=== PATIENT | male | born 1930 | race Caucasian/White ===

== ENCOUNTER 2016-10-02 14:43 | Inpatient (IN) | payer MEDICARE, BC ==
[~2016-10-02] VITALS: Ht 167.6 cm; Wt 73.0 kg
--- NOTE | 2016-10-02 14:50 | NUR ---
DR BRYANT AT THE BEDSIDE FOR EVAL AND EXAM.
[2016-10-02] MEDS ORDERED: METO-302 PO (15:09)
[2016-10-02] MEDS ORDERED: DIGO250T PO (15:09)
[2016-10-02] MEDS ORDERED: NAPR220C15 PO (15:09)
[2016-10-02] MEDS ORDERED: MIRT15TA7 PO (15:09)
[2016-10-02] MEDS ORDERED: MIRT15TA PO (15:09)
[2016-10-02] MEDS ORDERED: QUET25TA PO (15:09)
[2016-10-02] MEDS ORDERED: DUTA0.5C PO (15:09)
[2016-10-02] MEDS ORDERED: FINA5TAB11 PO (15:09)
[2016-10-02] MEDS ORDERED: DOCU100C22 PO (15:09)
[2016-10-02] MEDS ORDERED: NIAC500T23 PO (15:09)
[2016-10-02] MEDS ORDERED: FURO20TA4 PO (15:09)
[2016-10-02] MEDS ORDERED: ASPI-612 PO (15:09)
[2016-10-02] MEDS ORDERED: TRAM50TA2 PO (15:09)
[2016-10-02] MEDS ORDERED: LEVO75TA7 PO (15:09)
[2016-10-02] MEDS ORDERED: EZET10TA PO (15:09)
[2016-10-02] MEDS ORDERED: MULT-1119 PO (15:09)
[2016-10-02 15:14] LABS: BASOPHILS # (AUTO) 0.1 K/uL (0.0-0.2); BASOPHILS % (AUTO) 0.6 % (0.0-2.0); EOSINOPHILS # (AUTO) 0.4 K/uL (0.0-0.7); HEMATOCRIT 49.1 % (40.0-50.0); HEMOGLOBIN 15.9 g/dL (14.0-18.0); LYMPHOCYTES # (AUTO) 1.1 K/uL (0.8-4.8); LYMPHOCYTES % (AUTO) 12.4 % (20.5-51.5); MEAN CORPUSCULAR HEMOGLOBIN 28.7 uug (27.0-31.0); MEAN CORPUSCULAR HGB CONC 32 g/dL (32.0-37.0); MEAN CORPUSCULAR VOLUME 88.7 fL (82.0-92.0); MONOCYTES # (AUTO) 0.4 K/uL (0.1-1.30); NEUTROPHILS # (AUTO) 6.9 K/uL (1.8-8.9); PLATELET COUNT (AUTO) 300 K/uL (150-450); RED BLOOD CELL COUNT(AUTO) 5.53 MIL/uL (4.70-6.10); RED CELL DISTRIBUTION WIDTH 13.1 % (11.5-14.5); WHITE BLOOD COUNT (AUTO) 8.9 K/uL (4.0-11.2)
[2016-10-02] MEDS ORDERED: ALBU0.63 IH (15:14)
[2016-10-02] MEDS ORDERED: TEST200V3 IM (15:14)
[2016-10-02] MEDS ORDERED: ANAS1TAB8 PO (15:14)
[2016-10-02] MEDS ORDERED: IPRA12.9 IH (15:14)
[2016-10-02 15:31] LABS: BILIRUBIN,DIRECT 0.3 mg/dL (0.0-0.2); BILIRUBIN,TOTAL 1.1 mg/dL (0.2-1.0); CALCIUM 9.6 mg/dL (8.5-10.1); POTASSIUM 4.7 mmol/L (3.5-5.1)
[2016-10-02 15:34] LABS: CREATININE 2.6 mg/dL (0.6-1.3)
[2016-10-02] MEDS ORDERED: MORPHINE SULFATE 2 MG/1 ML DISP.SYRIN ONE (15:59)
[2016-10-02] MEDS ORDERED: MORPHINE SULFATE 2 MG/1 ML DISP.SYRIN IV ONE (16:00)
[2016-10-02] MEDS ORDERED: ONDANSETRON 4 MG/2 ML VIAL IV ONE (16:00)
[2016-10-02] MEDS ORDERED: ONDANSETRON 4 MG/2 ML VIAL ONE (16:06)
--- NOTE | 2016-10-02 16:10 | NUR ---
BELONGING LIST COMPLETED. NOT CANDIDATE FOR MRSA SWAB.
[2016-10-02 17:00] VITALS: BP 100/60
--- NOTE | 2016-10-02 17:15 | NUR ---
RECEIVED PATIENT 85 YEARS OLD MALE FROM ED WITH DX OF FREQUENT FALLS AND HIP INJURY.PLACED INTO BED FIXED AND MADE COMFORTABLE PATIENT IS ALERT X2 UNABLE TO PROVIDE HISTORY SO I CALLED HIS FARA AND SPOKE WITH HER AND SHE ASSISTED WITH ADMISSION QUESTIONARES.DR RICARDO AWARE OF NEW PATIENT AWAITING FOR ORDERS.
[2016-10-02] MEDS ORDERED: IPRATROPIUM BROMIDE 0.5 MG/2.5 ML NEBU NEB PRN (18:45)
[2016-10-02] MEDS ORDERED: ANASTROZOLE 1 MG TABLET PO SCH (18:45)
[2016-10-02] MEDS ORDERED: MORPHINE SULFATE 2 MG/1 ML DISP.SYRIN IV PRN (18:45)
[2016-10-02] MEDS ORDERED: ALBUTEROL SULFATE 2.5 MG/ 0.5 ML NEBU NEB PRN (18:45)
--- NOTE | 2016-10-02 18:55 | NUR ---
DR RICARDO SEEN PATIENT WITH NEW ORDERS.
[2016-10-02 19:00] VITALS: BP 122/69
--- NOTE | 2016-10-02 20:00 | NUR ---
RECEIVED PATIENT AWAKE IN BED. ALERT TO SELF. CONFUSED BUT PLEASANT WHEN APPROACHED. DENIES PAIN OR DISCOMFORT. NO RESP. DISTRESS NOTED. H/L INTACT AND PATENT. VSS. BED ALARM ON FOR SAFETY. CALL LIGHT IN REACH. WILL CONTINUE TO MONITOR. ALL NEEDS ATTENDED.
[2016-10-02] MEDS: IV 1/2NS 1000 ML 1,000 ML IV PRN (20:25)
[2016-10-02] MEDS: ACETAMINOPHEN 325 MG TABLET PO PRN (20:45)
[2016-10-02] MEDS: MIRTAZAPINE 15 MG TABLET PO SCH (20:45)
[2016-10-02] MEDS: Z GUARD REMEDY PASTE 57 GM TUBE TOP SCH (20:45)
[2016-10-02] MEDS: EZETIMIBE 10 MG TABLET PO SCH (20:45)
[2016-10-02] MEDS ORDERED: MIRTAZAPINE 15 MG TABLET PO SCH (21:00)
[2016-10-03 05:00] VITALS: BP 143/62
--- NOTE | 2016-10-03 05:43 | NUR ---
PATIENT AWAKE IN BED. DID NOT SLEEP THROUGHOUT THE NIGHT. DENIES PAIN AT THIS TIME. PATIENT HAS PERIODS OF CONFUSION. IVF INFUSING WELL TO NEW IV HEPLOCK NOTED TO LEFT FA #20 GAUGE. SITTER AT BEDSIDE FOR SAFETY. VSS. NO RESP. DISTRESS NOTED. BED ALARM ON. CALL LIGHT IN REACH. ALL NEEDS ATTENDED. WILL CONTINUE TO MONITOR.
[2016-10-03] MEDS: PANTOPRAZOLE SODIUM 40 MG TABLET.DR PO SCH (06:10)
[2016-10-03] MEDS: LEVOTHYROXINE SODIUM 75 MCG TABLET PO SCH (06:10)
[2016-10-03 06:48] LABS: BASOPHILS # (AUTO) 0.1 K/uL (0.0-0.2); BASOPHILS % (AUTO) 0.8 % (0.0-2.0); EOSINOPHILS # (AUTO) 0.5 K/uL (0.0-0.7); EOSINOPHILS % (AUTO) 6.4 % (0.0-7.0); HEMATOCRIT 46.7 % (40.0-50.0); LYMPHOCYTES # (AUTO) 1.4 K/uL (0.8-4.8); LYMPHOCYTES % (AUTO) 17.7 % (20.5-51.5); MEAN CORPUSCULAR HEMOGLOBIN 28.7 uug (27.0-31.0); MEAN CORPUSCULAR HGB CONC 32 g/dL (32.0-37.0); MEAN CORPUSCULAR VOLUME 89.4 fL (82.0-92.0); MONOCYTES # (AUTO) 0.7 K/uL (0.1-1.30); MONOCYTES % (AUTO) 8.5 % (0.0-11.0); NEUTROPHILS % (AUTO) 66.6 % (38.5-71.5); PLATELET COUNT (AUTO) 269 K/uL (150-450); RED BLOOD CELL COUNT(AUTO) 5.23 MIL/uL (4.70-6.10); WHITE BLOOD COUNT (AUTO) 7.7 K/uL (4.0-11.2)
[2016-10-03 07:08] LABS: THYROID STIMULATING HORMONE 3.687 mIU/mL (0.358-3.740)
--- NOTE | 2016-10-03 07:30 | NUR ---
PT RECEIVED IN BED AWAKW.PT IS CONFUSED ,SITTER AT BED SIDE ,V/S ARE STABLE.BREAKFAST SERVED.
[2016-10-03] MEDS: DOCUSATE SODIUM 100 MG CAPSULE PO SCH ×2 (08:11→16:09)
[2016-10-03] MEDS: DUTASTERIDE 0.5 MG CAPSULE PO SCH (08:11)
[2016-10-03] MEDS: ASPIRIN 325 MG TABLET PO SCH (08:11)
[2016-10-03] MEDS: MULTIVITAMINS,THERAPEUTIC TABLET PO SCH (08:11)
[2016-10-03] MEDS: Z GUARD REMEDY PASTE 57 GM TUBE TOP SCH ×2 (08:12→20:19)
[2016-10-03 08:19] LABS: ALBUMIN 3.5 g/dL (3.4-5.0); BILIRUBIN,TOTAL 1.1 mg/dL (0.2-1.0); CALCIUM 9.2 mg/dL (8.5-10.1); PHOSPHOROUS 3.4 mg/dL (2.5-4.9); POTASSIUM 4.1 mmol/L (3.5-5.1); TOTAL PROTEIN, SERUM 6.3 g/dL (6.4-8.2)
[2016-10-03 08:25] LABS: CREATININE 2.5 mg/dL (0.6-1.3)
[2016-10-03] MEDS ORDERED: Medication Not On Formulary EA (Multivitamin (Multi Vitamin Daily) 1 EACH) PO SCH (09:00)
[2016-10-03] MEDS ORDERED: DIGOXIN 250 MCG TABLET PO SCH (09:00)
[2016-10-03 09:22] LABS: DIGOXIN 3.64 ng/mL (0.90-2.00)
--- NOTE | 2016-10-03 09:22 | NUR ---
PT DIGOXIN LEVEL IS 3.64 MD MADE AWARE.
--- NOTE | 2016-10-03 10:40 | NUR ---
CLINICAL PHARMACY NOTE(REVIEW [place] [facility] 85-year-old male, patient is brought in by and caregiver. PCP is Dr. Mock. Patient has been having frequent falls the past week and today fell onto the right hip. Patient is having right hip pain. Unknown head injury. No chest pain or palpitations. Possible syncope also. Medical history Past Medical Hx: Yes HX Neurological Disorder: Yes (PARKINSONS, ALZHEIMERS) HX Cardiac Disorder: Yes (A FIB, MVR, 3 VESSEL BYPASS, PACEMAKER, CAD) HX Genitourinary Disorder: Yes (PROSTATE PROBLEMS) HX Musculoskeletal Disorder: Yes (ARTHRITIS, FREQUENT FALLS) Other Medical HX: HYPOTHYROIDISM All medications review as of today digoxin, mirtazapine and pantoprazole on high risk list. Digoxin not recommended as first line therapy for AF in the elderly increase risk of toxicity. If use no more than 0.125mg recommended. Mirtazapine m.ay exacerbate or cause syndrome of inappropriate antidiuretic hormone secretion or hyponatremia. Pantoprazole avoid use greater than 8 weeks unless high risk patient risk of Clostridium difficile infection and bone loss and fractures. Patient was on digoxin 0.25mg daily Scr 2.5 estimate CrCl 20 dig level came back 3.64. Digoxin held for today. Dig level ordered for tomorrow. If in range doctor order 0.125mg daily. Pantoprazole ordered in hospital as part of GI prophylaxis. Although do not see depression listed in the history, mirtazapine maybe effective in some of the psychiatric symptoms of Parkinson disease. Therefore at this time have no recommendation except for monitoring digoxin level and signs of digoxin toxicity.
[2016-10-03] MEDS: ACETAMINOPHEN 325 MG TABLET PO PRN (10:43)
[2016-10-03] MEDS: IV 1/2NS 1000 ML 1,000 ML IV PRN (12:10)
[2016-10-03 12:11] VITALS: BP 144/74
[2016-10-03 15:02] LABS: *BILIRUBIN,URIN NEGATIVE (NEGATIVE); *BLOOD, URINE NEGATIVE (NEGATIVE); *CLARITY,URINE CLEAR (CLEAR); *COLOR,URINE YELLOW (YELLOW); *KETONES,URINE NEGATIVE (NEGATIVE); *PROTEIN,URINE NEGATIVE (NEGATIVE); *UROBILINOGEN,URINE 0.2 E.U./dl (NORMAL); LEUKOCYTE ESTERASE ,URINE NEGATIVE (NEGATIVE); NITRITE, URINE NEGATIVE (NEGATIVE); UGLUCOSE NEGATIVE (NEGATIVE)
[2016-10-03 15:11] LABS: MUCUS,URINE FEW /LPF (0-FEW); RBC,URINE 0-3 /HPF (0-3); SQUAMOUS EPITHELIAL CELL,UR FEW /HPF (NONE SEEN); WBC,URINE 0-3 /HPF (0-3)
[2016-10-03 15:50] VITALS: BP 134/62
[2016-10-03] MEDS: LORAZEPAM 2 MG/1 ML VIAL IV PRN (15:55)
--- NOTE | 2016-10-03 16:00 | NUR ---
PT IS VERY COMBATIVE AND JUMPING OUT OF BED PER MD ORDERS ATIVAN 0.5 MG I/V GIVEN
--- NOTE | 2016-10-03 19:30 | NUR ---
RESTING IN BED, SLEEPING AT THIS TIME. CALM AND COMFORTABLE. NO ACUTE DISTRESS NOTED. 1:1 SITTER AT BEDSIDE FOR SAFETY. NEEDS ATTENDED. WILL CONTINUE TO MONITOR
[2016-10-03 20:00] VITALS: BP 107/61
[2016-10-03] MEDS: MIRTAZAPINE 15 MG TABLET PO SCH (20:19)
[2016-10-03] MEDS: EZETIMIBE 10 MG TABLET PO SCH (20:19)
--- NOTE | 2016-10-04 02:50 | NUR ---
NOTED TO BE RESTLESS. WANTS TO GET OUT OF BED, UNABLE TO REDIRECT. SAFETY MAINTAINED. WILL ADMINISTER ATIVAN ORDERED. WILL MONITOR
[2016-10-04] MEDS: LORAZEPAM 2 MG/1 ML VIAL IV PRN (02:51)
[2016-10-04] MEDS: IV 1/2NS 1000 ML 1,000 ML IV PRN ×2 (02:52→16:51)
[2016-10-04 04:00] VITALS: BP 111/64
--- NOTE | 2016-10-04 06:08 | NUR ---
SLEPT AFTER ATIVAN ADMINISTRATION. NO ACUTE DISTRESS NOTED. CONTINUES WITH 1:1 SITTER AT BEDSIDE. TURNED AND REPOSITIONED. KEPT CLEAN AND DRY. KEPT COMFORTABLE
[2016-10-04] MEDS: LEVOTHYROXINE SODIUM 75 MCG TABLET PO SCH (06:16)
[2016-10-04] MEDS: PANTOPRAZOLE SODIUM 40 MG TABLET.DR PO SCH (06:16)
[2016-10-04] MEDS ORDERED: SENNOSIDES 1 TABLET PO PRN (07:15)
--- NOTE | 2016-10-04 07:30 | NUR ---
pt received in bed sleeping.sitter at bed side.v/s are stable.assessment done.breakfast served.
[2016-10-04] MEDS: ASPIRIN 325 MG TABLET PO SCH (08:06)
[2016-10-04] MEDS: MULTIVITAMINS,THERAPEUTIC TABLET PO SCH (08:06)
[2016-10-04] MEDS: DOCUSATE SODIUM 100 MG CAPSULE PO SCH ×2 (08:06→16:03)
[2016-10-04] MEDS: DUTASTERIDE 0.5 MG CAPSULE PO SCH (08:07)
[2016-10-04] MEDS: Z GUARD REMEDY PASTE 57 GM TUBE TOP SCH ×2 (08:13→21:55)
[2016-10-04] MEDS ORDERED: DIGOXIN 125 MCG TABLET PO SCH (09:00)
[2016-10-04] MEDS ORDERED: DIGOXIN 250 MCG TABLET PO SCH (09:00)
[2016-10-04 09:20] LABS: BASOPHILS # (AUTO) 0.1 K/uL (0.0-0.2); BASOPHILS % (AUTO) 1.4 % (0.0-2.0); EOSINOPHILS # (AUTO) 0.5 K/uL (0.0-0.7); EOSINOPHILS % (AUTO) 6.1 % (0.0-7.0); HEMATOCRIT 46.3 % (40.0-50.0); HEMOGLOBIN 14.7 g/dL (14.0-18.0); LYMPHOCYTES # (AUTO) 1.3 K/uL (0.8-4.8); LYMPHOCYTES % (AUTO) 17.4 % (20.5-51.5); MEAN CORPUSCULAR HEMOGLOBIN 28.2 uug (27.0-31.0); MEAN CORPUSCULAR HGB CONC 32 g/dL (32.0-37.0); MEAN CORPUSCULAR VOLUME 88.9 fL (82.0-92.0); MONOCYTES # (AUTO) 0.7 K/uL (0.1-1.30); MONOCYTES % (AUTO) 9.8 % (0.0-11.0); NEUTROPHILS % (AUTO) 65.3 % (38.5-71.5); PLATELET COUNT (AUTO) 257 K/uL (150-450); RED BLOOD CELL COUNT(AUTO) 5.21 MIL/uL (4.70-6.10); RED CELL DISTRIBUTION WIDTH 12.8 % (11.5-14.5); WHITE BLOOD COUNT (AUTO) 7.6 K/uL (4.0-11.2)
[2016-10-04 09:49] LABS: ALBUMIN 3.4 g/dL (3.4-5.0); BILIRUBIN,TOTAL 1.1 mg/dL (0.2-1.0); MAGNESIUM 2.2 mg/dL (1.8-2.4); PHOSPHOROUS 2.8 mg/dL (2.5-4.9); POTASSIUM 3.9 mmol/L (3.5-5.1); TOTAL PROTEIN, SERUM 6.2 g/dL (6.4-8.2)
[2016-10-04 09:52] LABS: CREATININE 2.1 mg/dL (0.6-1.3)
[2016-10-04 09:53] LABS: DIGOXIN 3.19 ng/mL (0.90-2.00)
--- NOTE | 2016-10-04 09:57 | NUR ---
pt digoxin level is 3.19 ,dr encinas notified
[2016-10-04 12:00] VITALS: BP 145/68
[2016-10-04 15:24] VITALS: BP 138/54
--- NOTE | 2016-10-04 17:30 | NUR ---
PT WAS RETAINING URINE PER MD ORDERS FOLLY CATHETER INSERTED.
--- NOTE | 2016-10-04 19:35 | NUR ---
Patient resting in bed comfortably, no s/s of distress. Sitter at bedside. Call light within reach. Will continue to monitor.
[2016-10-04 20:00] VITALS: BP 146/71
[2016-10-04] MEDS: EZETIMIBE 10 MG TABLET PO SCH (20:14)
[2016-10-04] MEDS: MIRTAZAPINE 15 MG TABLET PO SCH (20:14)
--- NOTE | 2016-10-04 20:18 | NUR ---
SHEILA, PATIENT'S GAVE PERMISSION TO GIVE INFORMATION TO THEIR SON MR. ALEAH RODAS
[2016-10-05] MEDS: LORAZEPAM 2 MG/1 ML VIAL IV PRN ×3 (01:11→19:43)
[2016-10-05 05:58] VITALS: BP 139/75
--- NOTE | 2016-10-05 06:08 | NUR ---
Patient awake with no s/s of distress at this time. With episodes of agitation during the shift. Due meds given. Call light within reach. Sitter at bedside. Frequent checks done. Safety measures observed. Needs attended. Kept comfortable. Endorsed accordingly.
[2016-10-05] MEDS: LEVOTHYROXINE SODIUM 75 MCG TABLET PO SCH (06:27)
[2016-10-05] MEDS: PANTOPRAZOLE SODIUM 40 MG TABLET.DR PO SCH (06:28)
[2016-10-05 07:07] LABS: BASOPHILS # (AUTO) 0.1 K/uL (0.0-0.2); BASOPHILS % (AUTO) 1.4 % (0.0-2.0); EOSINOPHILS # (AUTO) 0.4 K/uL (0.0-0.7); EOSINOPHILS % (AUTO) 4.8 % (0.0-7.0); HEMATOCRIT 47.1 % (40.0-50.0); HEMOGLOBIN 15.3 g/dL (14.0-18.0); LYMPHOCYTES # (AUTO) 1.3 K/uL (0.8-4.8); LYMPHOCYTES % (AUTO) 14.2 % (20.5-51.5); MEAN CORPUSCULAR HEMOGLOBIN 29.4 uug (27.0-31.0); MEAN CORPUSCULAR HGB CONC 33 g/dL (32.0-37.0); MEAN CORPUSCULAR VOLUME 90.5 fL (82.0-92.0); MONOCYTES # (AUTO) 0.6 K/uL (0.1-1.30); MONOCYTES % (AUTO) 6.4 % (0.0-11.0); NEUTROPHILS # (AUTO) 6.8 K/uL (1.8-8.9); NEUTROPHILS % (AUTO) 73.2 % (38.5-71.5); PLATELET COUNT (AUTO) 264 K/uL (150-450); RED BLOOD CELL COUNT(AUTO) 5.21 MIL/uL (4.70-6.10); RED CELL DISTRIBUTION WIDTH 12.9 % (11.5-14.5); WHITE BLOOD COUNT (AUTO) 9.1 K/uL (4.0-11.2)
[2016-10-05 07:21] LABS: ALBUMIN 3.4 g/dL (3.4-5.0); CREATININE 2.2 mg/dL (0.6-1.3); PHOSPHOROUS 2.5 mg/dL (2.5-4.9); POTASSIUM 3.8 mmol/L (3.5-5.1); TOTAL PROTEIN, SERUM 6.5 g/dL (6.4-8.2)
--- NOTE | 2016-10-05 07:30 | NUR ---
PT RECEIVED IN BED SLEEPING.SITTER AT BED SIDE.V/S ARE STABLE.
[2016-10-05] MEDS: IV 1/2NS 1000 ML 1,000 ML IV PRN ×2 (07:44→22:14)
[2016-10-05] MEDS: ASPIRIN 325 MG TABLET PO SCH (08:01)
[2016-10-05] MEDS: DOCUSATE SODIUM 100 MG CAPSULE PO SCH ×2 (08:01→16:19)
[2016-10-05] MEDS: MULTIVITAMINS,THERAPEUTIC TABLET PO SCH (08:01)
[2016-10-05] MEDS: DUTASTERIDE 0.5 MG CAPSULE PO SCH (08:02)
[2016-10-05] MEDS: Z GUARD REMEDY PASTE 57 GM TUBE TOP SCH ×2 (08:14→20:03)
[2016-10-05 11:38] VITALS: BP 130/55
--- NOTE | 2016-10-05 14:00 | NUR ---
PT WALK WITH THE PHYSICAL THERAPY IN THE HALLWAY ,TOLERATED WELL
[2016-10-05] MEDS: ACETAMINOPHEN 325 MG TABLET PO PRN ×2 (14:27→20:02)
--- NOTE | 2016-10-05 14:27 | NUR ---
PT IS JUMPING OUT OF BED.HITTING THE SITTER ,ATIVAN 0.5 MG I/V GIVEN PER MD ORDERS.
[2016-10-05 16:38] VITALS: BP 139/86
[2016-10-05 19:00] VITALS: BP 125/67
--- NOTE | 2016-10-05 20:00 | NUR ---
PATIENT AWAKE IN BED. VERY AGITATED AND TRYING TO PULL OUT IV SITE. SITTER AT BEDSIDE FOR SAFETY. VSS. PATIENT GIVEN ATIVAN 0.5MG IV PER RN. IVF INFUSING WELL TO LEFT FA #20 GAUGE. NO S/S OF PAIN OR DISCOMFORT. NO RESP. DISTRESS NOTED. BED ALARM ON. CALL LIGHT IN REACH. ALL NEEDS ATTENDED. WILL CONTINUE TO MONITOR AND ASSESS.
[2016-10-05] MEDS: EZETIMIBE 10 MG TABLET PO SCH (20:02)
[2016-10-05] MEDS: MIRTAZAPINE 15 MG TABLET PO SCH (20:02)
[2016-10-06 05:38] VITALS: BP 131/71
[2016-10-06] MEDS: PANTOPRAZOLE SODIUM 40 MG TABLET.DR PO SCH (06:05)
[2016-10-06] MEDS: LEVOTHYROXINE SODIUM 75 MCG TABLET PO SCH (06:05)
--- NOTE | 2016-10-06 06:36 | NUR ---
PATIENT ASLEEP IN BED. EASILY AROUSABLE. SLEPT WELL THROUGHOUT THE NIGHT. SITTER AT BEDSIDE. VSS. IVF INFUSING WELL. BED ALARM ON. CALL LIGHT IN REACH. ALL NEEDS ATTENDED. WILL CONTINUE TO MONITOR.
[2016-10-06 06:51] LABS: BASOPHILS # (AUTO) 0.1 K/uL (0.0-0.2); BASOPHILS % (AUTO) 0.9 % (0.0-2.0); EOSINOPHILS # (AUTO) 0.6 K/uL (0.0-0.7); EOSINOPHILS % (AUTO) 6.8 % (0.0-7.0); HEMATOCRIT 46.4 % (40.0-50.0); HEMOGLOBIN 14.8 g/dL (14.0-18.0); LYMPHOCYTES # (AUTO) 1.5 K/uL (0.8-4.8); LYMPHOCYTES % (AUTO) 16.9 % (20.5-51.5); MEAN CORPUSCULAR HEMOGLOBIN 28.7 uug (27.0-31.0); MEAN CORPUSCULAR HGB CONC 32 g/dL (32.0-37.0); MEAN CORPUSCULAR VOLUME 89.7 fL (82.0-92.0); MONOCYTES # (AUTO) 0.8 K/uL (0.1-1.30); MONOCYTES % (AUTO) 9.2 % (0.0-11.0); NEUTROPHILS # (AUTO) 5.8 K/uL (1.8-8.9); NEUTROPHILS % (AUTO) 66.2 % (38.5-71.5); PLATELET COUNT (AUTO) 246 K/uL (150-450); RED BLOOD CELL COUNT(AUTO) 5.17 MIL/uL (4.70-6.10); RED CELL DISTRIBUTION WIDTH 12.9 % (11.5-14.5); WHITE BLOOD COUNT (AUTO) 8.8 K/uL (4.0-11.2)
[2016-10-06 07:17] LABS: ALBUMIN 3.2 g/dL (3.4-5.0); BILIRUBIN,TOTAL 0.9 mg/dL (0.2-1.0); CALCIUM 8.9 mg/dL (8.5-10.1); DIGOXIN 2.36 ng/mL (0.90-2.00); MAGNESIUM 2.1 mg/dL (1.8-2.4); PHOSPHOROUS 3.2 mg/dL (2.5-4.9); POTASSIUM 4.1 mmol/L (3.5-5.1); TOTAL PROTEIN, SERUM 6.1 g/dL (6.4-8.2)
[2016-10-06 07:32] LABS: CREATININE 1.9 mg/dL (0.6-1.3)
--- NOTE | 2016-10-06 08:00 | NUR ---
RESTING QUIET CONTINUE IVF INFUSION WELL ,NO RESPIRATORY DISTRESS OR PAIN CLOSED OBSERVATION SITTER 1:1 AT BEDSIDE ,BED ALARM ON AND CALL SAMANO IN REACH AND INSTRUCTION TO CALL WHEN NEEDED
[2016-10-06] MEDS: MULTIVITAMINS,THERAPEUTIC TABLET PO SCH (08:02)
[2016-10-06] MEDS: DUTASTERIDE 0.5 MG CAPSULE PO SCH (08:03)
[2016-10-06] MEDS: ASPIRIN 325 MG TABLET PO SCH (08:03)
[2016-10-06] MEDS: DOCUSATE SODIUM 100 MG CAPSULE PO SCH ×2 (08:03→16:20)
[2016-10-06] MEDS: Z GUARD REMEDY PASTE 57 GM TUBE TOP SCH ×2 (08:03→21:04)
[2016-10-06 11:11] VITALS: BP 119/67
--- NOTE | 2016-10-06 12:30 | NUR ---
DR RICARDO SEE PATIENT AND LAB RESULT AND DISCUSS WITH FAMILY TODAY EAT LUNCH WELL NO PAIN MORE AWAKE ALERT
[2016-10-06 15:39] VITALS: BP 112/67
[2016-10-06] MEDS ORDERED: QUETIAPINE FUMARATE 25 MG TABLET PO SCH (17:00)
--- NOTE | 2016-10-06 17:15 | NUR ---
PATIENT WAS AGITATION TRY TO OOB MED PRN ATIVAN GIVEN ORDERED AND CLOSED OBSERVATION
[2016-10-06] MEDS: LORAZEPAM 2 MG/1 ML VIAL IV PRN (17:19)
--- NOTE | 2016-10-06 18:00 | NUR ---
SLEEP QUIET AT THIS TIME SAFETY MEASURE PROVIDED BED ALARM ON SITTER AT BEDSIDE
[2016-10-06 19:00] VITALS: BP 100/63
[2016-10-06] MEDS: EZETIMIBE 10 MG TABLET PO SCH (20:32)
[2016-10-06] MEDS: MIRTAZAPINE 15 MG TABLET PO SCH (20:32)
[2016-10-06] MEDS ORDERED: MIRT15TA7 PO (21:18)
[2016-10-06] MEDS ORDERED: IPRA0.2S6 NEB (21:18)
[2016-10-06] MEDS ORDERED: Acetaminophen PO (21:18)
[2016-10-06] MEDS ORDERED: QUET25TA PO (21:18)
[2016-10-06] MEDS ORDERED: ALBU2.5V13 NEB (21:18)
[2016-10-06] MEDS ORDERED: PANT40TA2 PO (21:18)
[2016-10-06] MEDS ORDERED: MENT71OI TOP (21:18)
[2016-10-06] MEDS ORDERED: Sennosides PO (21:18)
[2016-10-06] MEDS ORDERED: DIGO125T5 PO (21:27)
--- NOTE | 2016-10-06 22:30 | NUR ---
NURSE NOTE CALLED FOR REPORT AND GIVE REPORT TO LAZARUS IN U, PICTURES WERE TAKEN BY RAPID RESPOND NURSE, PT TRANSFERED TO THE MHU IN STABLE CONDITION
== END 2016-10-06 23:27 | DRG 682 ==
LOC: ER 14:50 → MED 16:42
PROVIDERS: ADMIT Internal Medicine; ATTEND Internal Medicine
DX: N17.0 Acute kidney failure with tubular necrosis (principal); I50.31 Acute diastolic (congestive) heart failure; G93.40 Encephalopathy, unspecified; I13.0 Hypertensive heart and chronic kidney disease with heart failure and stage 1 through stage 4 chronic kidney disease, or unspecified chronic kidney disease; D68.59 Other primary thrombophilia; F02.81 Dementia in other diseases classified elsewhere, unspecified severity, with behavioral disturbance; T46.0X5A Adverse effect of cardiac-stimulant glycosides and drugs of similar action, initial encounter; S70.01XA Contusion of right hip, initial encounter; S42.001A Fracture of unspecified part of right clavicle, initial encounter for closed fracture; E03.9 Hypothyroidism, unspecified; I25.10 Atherosclerotic heart disease of native coronary artery without angina pectoris; G30.9 Alzheimer's disease, unspecified; Z95.2 Presence of prosthetic heart valve; W18.30XA Fall on same level, unspecified, initial encounter; Y92.009 Unspecified place in unspecified non-institutional (private) residence as the place of occurrence of the external cause; G20 Parkinson's disease; N18.9 Chronic kidney disease, unspecified; F29 Unspecified psychosis not due to a substance or known physiological condition; M19.90 Unspecified osteoarthritis, unspecified site; M81.0 Age-related osteoporosis without current pathological fracture; N40.0 Benign prostatic hyperplasia without lower urinary tract symptoms; Z95.1 Presence of aortocoronary bypass graft; Z87.891 Personal history of nicotine dependence; Z86.73 Personal history of transient ischemic attack (TIA), and cerebral infarction without residual deficits; I48.2 Chronic atrial fibrillation; E29.1 Testicular hypofunction; F32.9 Major depressive disorder, single episode, unspecified; N28.1 Cyst of kidney, acquired; R29.6 Repeated falls; Z79.899 Other long term (current) drug therapy
CPT/HCPCS: 36415; 70030-TC; 70450; 71010; 72192; 73030; 76770; 83550; 83735; 84100; 84153; 84443; 85025; 85730; 92506; 93005; 93307; 97001; 97112; 97116; A4663; J2060; J2270; J2405; J3490

== ENCOUNTER 2016-10-06 23:43 | Inpatient (IN) | payer MEDICARE, BC ==
[~2016-10-06] VITALS: Ht 167.6 cm; Wt 70.3 kg
[~2016-10-06 23:43] MED LIST: ALBU0.63 IH; ALBU2.5V13 NEB; ANAS1TAB8 PO; ASPI-612 PO; Acetaminophen PO; DIGO125T5 PO; DIGO250T PO; DOCU100C22 PO; DUTA0.5C PO; EZET10TA PO; FURO20TA4 PO; IPRA0.2S6 NEB; IPRA12.9 IH; LEVO75TA7 PO; MENT71OI TOP; METO-302 PO; MIRT15TA PO; MIRT15TA7 PO; MULT-1119 PO; NAPR220C15 PO; NIAC500T23 PO; PANT40TA2 PO; QUET25TA PO; Sennosides PO; TEST200V3 IM; TRAM50TA2 PO
[2016-10-07] VITALS: BP 141/83
[2016-10-07] MEDS ORDERED: ACETAMINOPHEN 325 MG TABLET PO PRN
[2016-10-07] MEDS ORDERED: MAG HYDROX/AL HYDROX/SIMETH 30 ML LIQUID UDC PO PRN
--- NOTE | 2016-10-07 03:52 | NUR ---
Admitted patient from [facility], arrived via bed with RN and SCHOOL PLANT CONSULTANT. Patient is confused and disoriented when spoken to. F/C in place, saline lock in place. Patient denies any chest pain or shortness of breath. Pacemaker noted on left side of chest. Placed patient in bed, attempted to climb out of bed numerous times. Unable to redirect, patient states his car is parked outside and wants to go home. placed bed near nurses station for close observation. Attempting to climb out of bed, assisted patient to bathroom, patient with unsteady gait, assistance of 2 people needed when ambulating d/t weakness. Placed in abdirahman chair near nurses station for safety.
[2016-10-07 07:30] VITALS: BP 118/67
[2016-10-07] MEDS ORDERED: ANASTROZOLE 1 MG TABLET PO SCH (09:00)
[2016-10-07] MEDS ORDERED: TRAMADOL HCL 50 MG TABLET PO PRN (09:00)
[2016-10-07] MEDS ORDERED: IPRATROPIUM BROMIDE 0.5 MG/2.5 ML NEBU NEB PRN (09:00)
[2016-10-07] MEDS ORDERED: Medication Not On Formulary EA (Multivitamin (Multi Vitamin Daily) 1 EACH) PO SCH (09:00)
[2016-10-07] MEDS ORDERED: ALBUTEROL SULFATE 2.5 MG/ 0.5 ML NEBU NEB PRN (09:00)
[2016-10-07] MEDS ORDERED: [UNRECOGNIZED DRUG - OTHER] PO PRN (09:00)
[2016-10-07] MEDS: DOCUSATE SODIUM 100 MG CAPSULE PO SCH ×2 (09:00→17:00)
[2016-10-07] MEDS: MULTIVITAMINS,THERAPEUTIC TABLET PO SCH (09:45)
[2016-10-07] MEDS ORDERED: SENNOSIDES 1 TABLET PO PRN (09:45)
[2016-10-07] MEDS: LORAZEPAM 0.5 MG TABLET PO PRN (10:09)
[2016-10-07] MEDS: DIGOXIN 125 MCG TABLET PO SCH (10:10)
[2016-10-07] MEDS: DUTASTERIDE 0.5 MG CAPSULE PO SCH (10:10)
[2016-10-07] MEDS: Z GUARD REMEDY PASTE 57 GM TUBE TOP SCH ×2 (10:10→20:50)
[2016-10-07] MEDS: LEVOTHYROXINE SODIUM 75 MCG TABLET PO SCH (10:12)
[2016-10-07] MEDS: ASPIRIN 325 MG TABLET PO SCH (10:14)
[2016-10-07] MEDS: QUETIAPINE FUMARATE 25 MG TABLET PO SCH ×2 (13:45→17:00)
[2016-10-07 15:38] VITALS: BP 127/87
[2016-10-07 19:45] VITALS: BP 149/95
[2016-10-07] MEDS: TEMAZEPAM 7.5 MG CAPSULE PO PRN (23:26)
--- NOTE | 2016-10-07 23:27 | NUR ---
GPS: PATIENT UNABLE TO SLEEP. ENCOURAGED TO TAKE RESTORIL 7.5 MG PO. PATIENT SPIT OUT MEDS FROM HIS MOUTH.
[2016-10-08] MEDS: PANTOPRAZOLE SODIUM 40 MG TABLET.DR PO SCH (06:15)
[2016-10-08] MEDS: LEVOTHYROXINE SODIUM 75 MCG TABLET PO SCH (06:15)
--- NOTE | 2016-10-08 06:37 | NUR ---
GPS: REMAIN UNCOOPERATIVE WITH STAFF AND CARE. ASSISTED WITH ADL'S. REFUSED AM PO MEDS. F/C PATENT. 500 CC YELLOW URINE OUT PUT THIS MORNING. CONTINUE ON 1:1 SITTER @ BEDSIDE FOR SAFETY.
--- NOTE | 2016-10-08 06:53 | NUR ---
GPS: SLEPT 3:45 HRS THROUGH THE NIGHT. REFUSED AM PO MEDS. CONTINUE PLAN OF CARE.
[2016-10-08 07:30] VITALS: BP 127/62
[2016-10-08] MEDS: DOCUSATE SODIUM 100 MG CAPSULE PO SCH ×2 (09:35→17:36)
[2016-10-08] MEDS: ASPIRIN 325 MG TABLET PO SCH (09:35)
[2016-10-08] MEDS: MULTIVITAMINS,THERAPEUTIC TABLET PO SCH (09:36)
[2016-10-08] MEDS: DUTASTERIDE 0.5 MG CAPSULE PO SCH (09:36)
[2016-10-08] MEDS: QUETIAPINE FUMARATE 25 MG TABLET PO SCH (09:36)
[2016-10-08] MEDS: DIGOXIN 125 MCG TABLET PO SCH (09:36)
[2016-10-08] MEDS: Z GUARD REMEDY PASTE 57 GM TUBE TOP SCH ×2 (09:39→20:40)
[2016-10-08] MEDS: CYANOCOBALAMIN 1000 MCG/ML VIAL IM SCH (13:32)
--- NOTE | 2016-10-08 15:53 | NUR ---
Initial discharge instructions: The patient currently resides at home ([address] [place] [address]) with his (Delores,[phone]).SW spoke with the patients' and DPOA regarding discharge. The reports that she would like the patient to return home. She reports that she has obtained additional caregiver support that will be more appropriate for the patients care.The also reported that she would provide transportation back home upon discharge.EDSON will speak with MD and family regarding most appropriate discharge plan.SW will form a safe and proper discharge plan.
[2016-10-08 16:02] VITALS: BP 112/59
--- NOTE | 2016-10-08 16:35 | NUR ---
I have reviewed the psychosocial done by Mason Martínez. Addendum: 10/08/16 at 1637 by TOOTIE SANDHU Amended: Links added.
[2016-10-08] MEDS ORDERED: QUETIAPINE FUMARATE 25 MG TABLET PO SCH (17:00)
[2016-10-08] MEDS: MIRTAZAPINE 15 MG TABLET PO SCH ×2 (20:39→21:00)
[2016-10-08 20:51] VITALS: BP 104/53
--- NOTE | 2016-10-08 22:00 | NUR ---
received to care, lying in bed talking to self, 1;1 sitter at patients side. jon catheter remains patent, draining dark yellow urine, in adequate amounts. refused all medications and food offered, but he did take some apple juice and water. resistive to care at times. attempted to climb out of bed, and try to strike staff when redirected, so he was placed in the abdirahman chair, for safety. as of 2199, he remains in the abdirahman chair. appears to be falling asleep.no distress noted. will continue to monitor closely..
[2016-10-08] MEDS: TEMAZEPAM 7.5 MG CAPSULE PO PRN (23:40)
[2016-10-09] MEDS: LEVOTHYROXINE SODIUM 75 MCG TABLET PO SCH (06:53)
[2016-10-09] MEDS: PANTOPRAZOLE SODIUM 40 MG TABLET.DR PO SCH (06:53)
--- NOTE | 2016-10-09 07:00 | NUR ---
slept 1.5 hours total. compliant with early AM meds. appears calm. sitter at side.
[2016-10-09 07:08] LABS: BASOPHILS # (AUTO) 0.2 K/uL (0.0-0.2); BASOPHILS % (AUTO) 1.4 % (0.0-2.0); EOSINOPHILS # (AUTO) 0.7 K/uL (0.0-0.7); EOSINOPHILS % (AUTO) 5.5 % (0.0-7.0); HEMATOCRIT 48.7 % (40.0-50.0); HEMOGLOBIN 16.5 g/dL (14.0-18.0); LYMPHOCYTES # (AUTO) 1.6 K/uL (0.8-4.8); LYMPHOCYTES % (AUTO) 13.2 % (20.5-51.5); MEAN CORPUSCULAR HEMOGLOBIN 30.2 uug (27.0-31.0); MEAN CORPUSCULAR HGB CONC 34 g/dL (32.0-37.0); MEAN CORPUSCULAR VOLUME 89.3 fL (82.0-92.0); MONOCYTES # (AUTO) 0.7 K/uL (0.1-1.30); MONOCYTES % (AUTO) 5.8 % (0.0-11.0); NEUTROPHILS % (AUTO) 74.1 % (38.5-71.5); PLATELET COUNT (AUTO) 309 K/uL (150-450); RED BLOOD CELL COUNT(AUTO) 5.45 MIL/uL (4.70-6.10); RED CELL DISTRIBUTION WIDTH 12.8 % (11.5-14.5); WHITE BLOOD COUNT (AUTO) 12.2 K/uL (4.0-11.2)
[2016-10-09 07:27] LABS: ALBUMIN 3.8 g/dL (3.4-5.0); BILIRUBIN,TOTAL 0.9 mg/dL (0.2-1.0); CALCIUM 9.8 mg/dL (8.5-10.1); CREATININE 2.2 mg/dL (0.6-1.3); DIGOXIN 1.38 ng/mL (0.90-2.00); MAGNESIUM 2.3 mg/dL (1.8-2.4); PHOSPHOROUS 3.2 mg/dL (2.5-4.9); POTASSIUM 3.8 mmol/L (3.5-5.1); TOTAL PROTEIN, SERUM 7.2 g/dL (6.4-8.2)
[2016-10-09 07:30] VITALS: BP 112/70
[2016-10-09 08:06] LABS: HOMOCYSTEINE, PLASMA 18.2 umol/L (0.0-15.0)
--- NOTE | 2016-10-09 08:32 | NUR ---
Reviewed psychosocial done by Mason Martínez. Addendum: 10/09/16 at 0898 by SAMANTHA SANDHU Amended: Links added.
[2016-10-09] MEDS: Z GUARD REMEDY PASTE 57 GM TUBE TOP SCH ×2 (09:00→21:34)
[2016-10-09] MEDS: CYANOCOBALAMIN 1000 MCG/ML VIAL IM SCH (09:00)
[2016-10-09] MEDS: MULTIVITAMINS,THERAPEUTIC TABLET PO SCH (09:00)
[2016-10-09] MEDS: DUTASTERIDE 0.5 MG CAPSULE PO SCH (09:00)
[2016-10-09] MEDS: ASPIRIN 325 MG TABLET PO SCH (09:00)
[2016-10-09] MEDS: DIGOXIN 125 MCG TABLET PO SCH (09:00)
[2016-10-09] MEDS: DOCUSATE SODIUM 100 MG CAPSULE PO SCH ×2 (09:00→16:52)
[2016-10-09 09:22] LABS: BAND % (MANUAL) 2 % (0-10); BASOPHILS % (MANUAL) 0 % (0-2); EOSINOPHILS % (MANUAL) 2 % (0-8); LYMPHOCYTES % (MANUAL) 18 % (20-40); MONOCYTES % (MANUAL) 6 % (2-10); NEUTROPHILS % (MANUAL) 71 % (42-75); PLATELET ESTIMATE ADEQUATE
[2016-10-09] MEDS: QUETIAPINE FUMARATE 25 MG TABLET PO PRN ×2 (10:11→11:02)
--- NOTE | 2016-10-09 11:12 | NUR ---
GPS: Nursing Notes: Striking Out: Patient is confused, verbal abusive, resistant with nursing care, refusing his medications PO, threatening staff, restless, believes that he is leaving today, "I am going to ange you..", "You are a liar... Bitch..", loud and angry affect, trying to bite staff on the arm, resistant with nursing care by kicking staff when assisting him, disoriented, confused, impaired judgment, unable to be redirected, continue with 1:1 sitter for safety, continue with treatment plan.
[2016-10-09] MEDS ORDERED: OLANZAPINE 10 MG VIAL IM STA (11:27)
[2016-10-09] MEDS ORDERED: OLANZAPINE 10 MG VIAL IM ONE (11:30)
[2016-10-09] MEDS ORDERED: OLANZAPINE 10 MG VIAL IM PRN (11:30)
--- NOTE | 2016-10-09 11:42 | NUR ---
GPS: Nursing Notes: Chemical Restraint: Continue with severe agitation, striking out at staff by kicking, punching, trying to bite staff on the arm when near him, resistant with nursing care, restless, unable to be redirected, Dr. Kirkland order: Zyprexa 5mg IM STAT for severe agitated behavior, continue with 1:1 sitter for safety, continue with treatment plan.
--- NOTE | 2016-10-09 12:12 | NUR ---
GPS: Nursing Notes: Reassessment of Chemical Restraint: Patient continue to be confused, disoriented, impaired judgment, stopped striking out, became calm and allowing nursing care, continue with 1:1 sitter for safety, medication IM was effective, continue with treatment plan.
[2016-10-09 17:01] VITALS: BP 116/77
[2016-10-09 20:00] VITALS: BP 100/68
[2016-10-09] MEDS: MIRTAZAPINE 15 MG TABLET PO SCH (21:35)
[2016-10-10] MEDS: LORAZEPAM 0.5 MG TABLET PO PRN ×3 (00:16→17:19)
[2016-10-10] MEDS: TEMAZEPAM 7.5 MG CAPSULE PO PRN ×2 (01:39→22:11)
[2016-10-10] MEDS: LEVOTHYROXINE SODIUM 75 MCG TABLET PO SCH (06:24)
[2016-10-10] MEDS: PANTOPRAZOLE SODIUM 40 MG TABLET.DR PO SCH (06:24)
[2016-10-10 07:30] VITALS: BP 114/72
[2016-10-10 07:45] LABS: *BILIRUBIN,URIN NEGATIVE (NEGATIVE); *BLOOD, URINE 3+ (NEGATIVE); *CLARITY,URINE SLIGHTLY CLOUDY (CLEAR); *COLOR,URINE YELLOW (YELLOW); *KETONES,URINE NEGATIVE (NEGATIVE); *PROTEIN,URINE 2+ (NEGATIVE); *UROBILINOGEN,URINE 0.2 E.U./dl (NORMAL); NITRITE, URINE NEGATIVE (NEGATIVE); PH,URINE 5.5 (5.0-8.0); UGLUCOSE NEGATIVE (NEGATIVE)
[2016-10-10 08:25] LABS: LEUKOCYTE ESTERASE ,URINE TRACE (NEGATIVE)
[2016-10-10 08:27] LABS: BACTERIA,URINE FEW /HPF (NONE SEEN); RBC,URINE TNTC /HPF (0-3); SQUAMOUS EPITHELIAL CELL,UR FEW /HPF (NONE SEEN)
[2016-10-10 08:28] LABS: MUCUS,URINE FEW /LPF (0-FEW); URIC ACID CRYSTALS,URINE MODERATE /HPF (NONE SEEN)
[2016-10-10] MEDS: DUTASTERIDE 0.5 MG CAPSULE PO SCH (09:00)
[2016-10-10] MEDS: DOCUSATE SODIUM 100 MG CAPSULE PO SCH ×2 (09:53→17:19)
[2016-10-10] MEDS: MULTIVITAMINS,THERAPEUTIC TABLET PO SCH (09:53)
[2016-10-10] MEDS: CYANOCOBALAMIN 1000 MCG/ML VIAL IM SCH (09:53)
[2016-10-10] MEDS: DIGOXIN 125 MCG TABLET PO SCH (09:54)
[2016-10-10] MEDS: OLANZAPINE 2.5 MG TABLET PO SCH ×2 (09:55→17:19)
[2016-10-10] MEDS: ASPIRIN 325 MG TABLET PO SCH (09:56)
[2016-10-10] MEDS: Z GUARD REMEDY PASTE 57 GM TUBE TOP SCH ×2 (09:57→21:06)
--- NOTE | 2016-10-10 14:12 | NUR ---
GPS/RN- Dr Kirkland notified of Riese hearing scheduled for tomorrow at 2pm.
--- NOTE | 2016-10-10 14:15 | NUR ---
weekly meeting: HX: PARKINSON DISEASE , ALZHEIMER,AFIB,CAD,PACEMAKER,BPH,HYPOTHYROIDISM TOLERATING CURRENT DIET,EATING 0-100% OF MEALS (CARDIAC) ANTHROPOMETRY:HT IS 66",CURRENT WT IS 155LB,BMI 25-OVERWEIGHT , 3LB WT GAIN NOTICED IN ONE DAY LIKELY ERROR IN MEASUREMENT OR OTHER FACTORS. NO N/V/D NO ALLERGIES NOTICED MEDICATION:VITAMIN B12,PROTONIX,MVI,SYNTHROID,COLACE DNI PROTONIX AND SYNTHROID TO BE ADMINISTERED 1HR BEFORE OR 1HR AFTER FOOD LABS: 10/09 WBC-12.2(H), BUN/CR-28/2.2(H/H),GLUCOSE 123(H) BM PRESENT SKIN HAS REDNESS ON SACRUM NUTRITION DIAGNOSIS: ALTERED NUTRITION LAB VALUES RELATED TO CURRENT CONDITION,ACUTE KIDNEY FAILURE EVIDENCED BY ABOVE LAS INTERVENTION: IF BUN/CR CONTINUE TO ELEVATE, REC PROTEIN RESTRICTION DIET WILL F/U WITH PO INTAKE IF PO INTAKE DECLINE < 60%,CONSIDER BOOST ONCE MONITOR;PO INTAKE,WT,NEW LABS Addendum: 10/10/16 at [address] Amended: Links added.
[2016-10-10 16:00] VITALS: BP 124/75
[2016-10-10 20:04] VITALS: BP 112/63
[2016-10-10] MEDS ORDERED: SULFAMETH/TRIMETH 800/160 MG TABLET PO SCH (21:00)
[2016-10-10] MEDS: SULFAMETH/TRIMETH 800/160 MG TABLET PO SCH (21:05)
[2016-10-10] MEDS: MIRTAZAPINE 15 MG TABLET PO SCH (21:06)
[2016-10-10] MEDS: TAMSULOSIN HCL 0.4 MG CAP.SR.24H PO SCH (21:06)
--- NOTE | 2016-10-10 22:00 | NUR ---
received to care, lying in bed, 1;1 sitter at patients side. jon catheter remains patent, draining dark yellow urine, in adequate amounts. compliant with medications and staff direction. as of 2200, he remains awake, and slightly restless. no distress noted. will continue to monitor closely.
--- NOTE | 2016-10-10 22:11 | NUR ---
PRN restoril, given for insomnia
--- NOTE | 2016-10-10 23:00 | NUR ---
appears to be asleep. no distress noted.
--- NOTE | 2016-10-11 06:00 | NUR ---
SLEPT 6 HOURS
[2016-10-11] MEDS: LEVOTHYROXINE SODIUM 75 MCG TABLET PO SCH (06:33)
[2016-10-11] MEDS: PANTOPRAZOLE SODIUM 40 MG TABLET.DR PO SCH (07:00)
[2016-10-11 07:30] VITALS: BP 116/63
[2016-10-11] MEDS: ASPIRIN 325 MG TABLET PO SCH (09:34)
[2016-10-11] MEDS: DOCUSATE SODIUM 100 MG CAPSULE PO SCH ×2 (09:34→17:38)
[2016-10-11] MEDS: SULFAMETH/TRIMETH 800/160 MG TABLET PO SCH ×2 (09:35→20:22)
[2016-10-11] MEDS: DIGOXIN 125 MCG TABLET PO SCH (09:36)
[2016-10-11] MEDS: MULTIVITAMINS,THERAPEUTIC TABLET PO SCH (09:36)
[2016-10-11] MEDS: CYANOCOBALAMIN 1000 MCG/ML VIAL IM SCH (09:37)
[2016-10-11] MEDS: OLANZAPINE 2.5 MG TABLET PO SCH ×2 (09:37→17:38)
[2016-10-11] MEDS: DUTASTERIDE 0.5 MG CAPSULE PO SCH (09:55)
[2016-10-11] MEDS: Z GUARD REMEDY PASTE 57 GM TUBE TOP SCH ×2 (09:56→20:23)
--- NOTE | 2016-10-11 13:00 | NUR ---
PTS SHEILA ASKED TO SPEAK WITH DR CALDERON REGARDING CONSULT. PAGED THROUGH ENVIRONMENTAL SUSTAINABILITY MANAGER SERVICE TO RELAY ROLAND NUMBER ([phone])
[2016-10-11] MEDS: LORAZEPAM 0.5 MG TABLET PO PRN (17:40)
[2016-10-11 20:00] VITALS: BP 104/62
[2016-10-11] MEDS: MIRTAZAPINE 15 MG TABLET PO SCH (20:22)
[2016-10-11] MEDS: TAMSULOSIN HCL 0.4 MG CAP.SR.24H PO SCH (20:22)
--- NOTE | 2016-10-11 22:00 | NUR ---
received to care, lying in bed, appearing anxious, and restless, 1;1 sitter at side, for safety, and prevention of pulling on jon catheter tubing. f/c remains patent, draining brown colored urine. PO fluids encouraged, but he is very resistive. compliant with medications and staff direction. as of 2199, he is up in the abdirahman chair, due to attempting to climb out of bed. appears slightly restless. will continue to monitor closely.
--- NOTE | 2016-10-11 22:11 | NUR ---
PRN restoril given for insomnia
--- NOTE | 2016-10-11 22:45 | NUR ---
appears calmer now. assisted to bed, with sitter at side.
--- NOTE | 2016-10-11 23:15 | NUR ---
appears to be asleep. no distress noted.
--- NOTE | 2016-10-12 01:39 | NUR ---
pt is now awake, and restless, attempting to pull on catheter tubing, and climb out of bed. becomes combative, when redirected. PRN ativan was offered, but he refused. assisted up in the abdirahman chair, for safety. sitter remains at side.
[2016-10-12] MEDS: LORAZEPAM 0.5 MG TABLET PO PRN ×3 (02:39→22:48)
--- NOTE | 2016-10-12 02:39 | NUR ---
PRN ativan was given at this time. remains up in abdirahman chair. will continue to monitor closely.
--- NOTE | 2016-10-12 03:20 | NUR ---
assisted back to bed.
--- NOTE | 2016-10-12 06:00 | NUR ---
slept 1.75 hours. assisted with AM care, and shower. compliant with AM medications. currently up in abdirahman chair. sitter remains at side. output of jon catheter was 400 ml of dark yellow urine. no distress noted. will continue to monitor closely.
[2016-10-12] MEDS: LEVOTHYROXINE SODIUM 75 MCG TABLET PO SCH (06:04)
[2016-10-12] MEDS: PANTOPRAZOLE SODIUM 40 MG TABLET.DR PO SCH (06:04)
[2016-10-12 07:05] LABS: BASOPHILS # (AUTO) 0.1 K/uL (0.0-0.2); BASOPHILS % (AUTO) 0.7 % (0.0-2.0); EOSINOPHILS # (AUTO) 0.5 K/uL (0.0-0.7); EOSINOPHILS % (AUTO) 6.2 % (0.0-7.0); HEMATOCRIT 48.9 % (40.0-50.0); HEMOGLOBIN 16.2 g/dL (14.0-18.0); LYMPHOCYTES # (AUTO) 1.3 K/uL (0.8-4.8); LYMPHOCYTES % (AUTO) 15.2 % (20.5-51.5); MEAN CORPUSCULAR HGB CONC 33 g/dL (32.0-37.0); MEAN CORPUSCULAR VOLUME 90.5 fL (82.0-92.0); MONOCYTES # (AUTO) 0.5 K/uL (0.1-1.30); MONOCYTES % (AUTO) 5.7 % (0.0-11.0); NEUTROPHILS # (AUTO) 6.3 K/uL (1.8-8.9); NEUTROPHILS % (AUTO) 72.2 % (38.5-71.5); PLATELET COUNT (AUTO) 286 K/uL (150-450); RED CELL DISTRIBUTION WIDTH 12.7 % (11.5-14.5); WHITE BLOOD COUNT (AUTO) 8.7 K/uL (4.0-11.2)
[2016-10-12 07:30] VITALS: BP 110/60
[2016-10-12 07:59] LABS: DIGOXIN 0.91 ng/mL (0.90-2.00); MAGNESIUM 2.3 mg/dL (1.8-2.4); PHOSPHOROUS 3.7 mg/dL (2.5-4.9)
[2016-10-12] MEDS: SULFAMETH/TRIMETH 800/160 MG TABLET PO SCH ×3 (08:52→20:02)
[2016-10-12] MEDS: DOCUSATE SODIUM 100 MG CAPSULE PO SCH ×4 (08:52→18:11)
[2016-10-12] MEDS: MULTIVITAMINS,THERAPEUTIC TABLET PO SCH ×2 (08:52→09:00)
[2016-10-12] MEDS: DIGOXIN 125 MCG TABLET PO SCH ×2 (08:52→09:00)
[2016-10-12] MEDS: ASPIRIN 325 MG TABLET PO SCH ×2 (08:52→09:00)
[2016-10-12] MEDS: OLANZAPINE 2.5 MG TABLET PO SCH ×3 (08:53→18:11)
[2016-10-12] MEDS: DUTASTERIDE 0.5 MG CAPSULE PO SCH (09:00)
[2016-10-12] MEDS: CYANOCOBALAMIN 1000 MCG/ML VIAL IM SCH (09:00)
[2016-10-12] MEDS: Z GUARD REMEDY PASTE 57 GM TUBE TOP SCH ×2 (09:00→20:03)
[2016-10-12] MEDS: OLANZAPINE 10 MG VIAL IM PRN (09:06)
--- NOTE | 2016-10-12 09:44 | NUR ---
GPS/RN- Patient oriented to self this am, continues confused and disorganized, visual hallucinations noted. patient grabbing something in the air. patient refused am medications, unable to redirect. instructed as to current MD Carver orders, patient verbalizing "I don't give a damn what she ordered." attempted to offer hydration, refused unable to redirect IM given per MD Finney orders. continue to monitor and redirect patient.
[2016-10-12] MEDS ORDERED: HALOPERIDOL LACTATE 5 MG/1 ML VIAL IM PRN (12:00)
--- NOTE | 2016-10-12 12:04 | NUR ---
GPS/RN- Clarification of orders, confirmed that Dr Kirkland. Patient will be on Zyprexa BID PO orders with IM Zyprexa orders if patient refuses PO; Haldol PO at hs and IM Haldol if patient refuses Haldol PO
[2016-10-12 15:20] VITALS: BP 112/59
[2016-10-12] MEDS: MAGNESIUM HYDROXIDE 30 ML LIQUID UDC PO PRN ×2 (18:11→18:28)
[2016-10-12] MEDS: MIRTAZAPINE 15 MG TABLET PO SCH (20:02)
[2016-10-12] MEDS: TAMSULOSIN HCL 0.4 MG CAP.SR.24H PO SCH (20:02)
[2016-10-12] MEDS: HALOPERIDOL 1 MG TABLET PO SCH (20:03)
[2016-10-12 20:11] VITALS: BP 107/70
[2016-10-12 22:00] VITALS: BP 133/83
--- NOTE | 2016-10-12 22:00 | NUR ---
received to care, up in abdirahman chair, intermittently talking to himself, appearing pleasant, but slightly restless, upon approach. 1;1 sitter remains at side, for safety. jon catheter remains patent, draining dark yellow urine in adequate amounts, PO fluids encouraged. compliant with medications and staff direction. will continue to monitor closely.
--- NOTE | 2016-10-12 22:48 | NUR ---
continues to be restless. PRN ativan was given, at this time.
[2016-10-13] MEDS: PANTOPRAZOLE SODIUM 40 MG TABLET.DR PO SCH (06:37)
[2016-10-13] MEDS: LEVOTHYROXINE SODIUM 75 MCG TABLET PO SCH (06:37)
[2016-10-13 07:30] VITALS: BP 109/59
[2016-10-13] MEDS: MULTIVITAMINS,THERAPEUTIC TABLET PO SCH (09:00)
[2016-10-13] MEDS: DUTASTERIDE 0.5 MG CAPSULE PO SCH (09:00)
[2016-10-13] MEDS: OLANZAPINE 2.5 MG TABLET PO SCH ×2 (09:00→17:07)
[2016-10-13] MEDS: ASPIRIN 325 MG TABLET PO SCH (09:00)
[2016-10-13] MEDS: SULFAMETH/TRIMETH 800/160 MG TABLET PO SCH ×2 (09:00→20:31)
[2016-10-13] MEDS: CYANOCOBALAMIN 1000 MCG/ML VIAL IM SCH (09:00)
[2016-10-13] MEDS: DOCUSATE SODIUM 100 MG CAPSULE PO SCH ×2 (09:00→17:06)
[2016-10-13] MEDS: DIGOXIN 125 MCG TABLET PO SCH (09:00)
[2016-10-13] MEDS: Z GUARD REMEDY PASTE 57 GM TUBE TOP SCH ×2 (10:18→20:37)
[2016-10-13 16:00] VITALS: BP 113/59
[2016-10-13 19:59] VITALS: BP 106/58
[2016-10-13] MEDS: HALOPERIDOL 1 MG TABLET PO SCH (20:31)
[2016-10-13] MEDS: TAMSULOSIN HCL 0.4 MG CAP.SR.24H PO SCH (20:32)
[2016-10-13] MEDS: MIRTAZAPINE 15 MG TABLET PO SCH (20:32)
[2016-10-14] MEDS: TEMAZEPAM 7.5 MG CAPSULE PO PRN ×2 (00:34→22:20)
[2016-10-14] MEDS: LEVOTHYROXINE SODIUM 75 MCG TABLET PO SCH (06:19)
[2016-10-14] MEDS: PANTOPRAZOLE SODIUM 40 MG TABLET.DR PO SCH (06:19)
[2016-10-14 07:30] VITALS: BP 106/63
[2016-10-14] MEDS: ASPIRIN 325 MG TABLET PO SCH (08:27)
[2016-10-14] MEDS: DIGOXIN 125 MCG TABLET PO SCH (08:28)
[2016-10-14] MEDS: MULTIVITAMINS,THERAPEUTIC TABLET PO SCH (08:28)
[2016-10-14] MEDS: SULFAMETH/TRIMETH 800/160 MG TABLET PO SCH ×3 (08:28→20:09)
[2016-10-14] MEDS: DUTASTERIDE 0.5 MG CAPSULE PO SCH (08:28)
[2016-10-14] MEDS: DOCUSATE SODIUM 100 MG CAPSULE PO SCH ×2 (08:28→16:37)
[2016-10-14] MEDS: OLANZAPINE 2.5 MG TABLET PO SCH ×2 (08:29→16:37)
[2016-10-14] MEDS: Z GUARD REMEDY PASTE 57 GM TUBE TOP SCH ×2 (08:35→20:10)
[2016-10-14] MEDS: OLANZAPINE 10 MG VIAL IM PRN (08:35)
[2016-10-14] MEDS: CYANOCOBALAMIN 1000 MCG/ML VIAL IM SCH (08:36)
--- NOTE | 2016-10-14 14:17 | NUR ---
GPS: Nursing Notes: Thought Disorder: Patient is awake and responding to his name, confused, disoriented, impaired judgment, poor anger management, banging on the table, resistant with nursing care, refusing his AM medications, refusing to eat breakfast, angry affect, redirected and reoriented during shift, refusing to be shave, assisted with ADL's, continue with 1:1 sitter for safety, unable to formulate a plan for self care, episodes of trying to pull off his F/C, continue with treatment plan.
[2016-10-14 16:00] VITALS: BP 122/54
[2016-10-14 20:03] VITALS: BP 116/69
[2016-10-14] MEDS: MIRTAZAPINE 15 MG TABLET PO SCH (20:09)
[2016-10-14] MEDS: HALOPERIDOL 1 MG TABLET PO SCH (20:09)
[2016-10-14] MEDS: TAMSULOSIN HCL 0.4 MG CAP.SR.24H PO SCH (20:09)
[2016-10-15] MEDS: LEVOTHYROXINE SODIUM 75 MCG TABLET PO SCH (06:37)
[2016-10-15] MEDS: PANTOPRAZOLE SODIUM 40 MG TABLET.DR PO SCH (06:37)
[2016-10-15 07:53] VITALS: BP 99/50
[2016-10-15 08:10] LABS: BASOPHILS # (AUTO) 0.1 K/uL (0.0-0.2); BASOPHILS % (AUTO) 0.6 % (0.0-2.0); EOSINOPHILS # (AUTO) 0.5 K/uL (0.0-0.7); EOSINOPHILS % (AUTO) 5.8 % (0.0-7.0); HEMATOCRIT 46.6 % (40.0-50.0); HEMOGLOBIN 15.6 g/dL (14.0-18.0); LYMPHOCYTES # (AUTO) 1.3 K/uL (0.8-4.8); LYMPHOCYTES % (AUTO) 15.5 % (20.5-51.5); MEAN CORPUSCULAR HEMOGLOBIN 29.8 uug (27.0-31.0); MEAN CORPUSCULAR HGB CONC 33 g/dL (32.0-37.0); MEAN CORPUSCULAR VOLUME 89.3 fL (82.0-92.0); MONOCYTES # (AUTO) 0.5 K/uL (0.1-1.30); MONOCYTES % (AUTO) 5.5 % (0.0-11.0); NEUTROPHILS # (AUTO) 6.1 K/uL (1.8-8.9); NEUTROPHILS % (AUTO) 72.6 % (38.5-71.5); PLATELET COUNT (AUTO) 299 K/uL (150-450); RED BLOOD CELL COUNT(AUTO) 5.21 MIL/uL (4.70-6.10); RED CELL DISTRIBUTION WIDTH 13.1 % (11.5-14.5); WHITE BLOOD COUNT (AUTO) 8.5 K/uL (4.0-11.2)
[2016-10-15 08:38] LABS: ALBUMIN 3.4 g/dL (3.4-5.0); BILIRUBIN,TOTAL 0.8 mg/dL (0.2-1.0); CALCIUM 9.4 mg/dL (8.5-10.1); CREATININE 2.6 mg/dL (0.6-1.3); MAGNESIUM 2.3 mg/dL (1.8-2.4); POTASSIUM 3.8 mmol/L (3.5-5.1); TOTAL PROTEIN, SERUM 6.5 g/dL (6.4-8.2)
[2016-10-15] MEDS: CYANOCOBALAMIN 1000 MCG/ML VIAL IM SCH (09:00)
[2016-10-15] MEDS: ASPIRIN 325 MG TABLET PO SCH (09:43)
[2016-10-15] MEDS: OLANZAPINE 2.5 MG TABLET PO SCH (09:44)
[2016-10-15] MEDS: DOCUSATE SODIUM 100 MG CAPSULE PO SCH (09:44)
[2016-10-15] MEDS: DIGOXIN 125 MCG TABLET PO SCH (09:44)
[2016-10-15] MEDS: SULFAMETH/TRIMETH 800/160 MG TABLET PO SCH (09:44)
[2016-10-15] MEDS: DUTASTERIDE 0.5 MG CAPSULE PO SCH (09:44)
[2016-10-15] MEDS: MULTIVITAMINS,THERAPEUTIC TABLET PO SCH (09:44)
[2016-10-15] MEDS: Z GUARD REMEDY PASTE 57 GM TUBE TOP SCH (09:45)
--- NOTE | 2016-10-15 11:08 | NUR ---
Maintenance Parts Technician The patient was referred to [facility] ([facility]) [[address] [place] [address] ]. Spoke with Ivelisse in admissions at the facility who stated that they will be accepting the patient when he is stable and ready for DC. Spoke with the patient's son Santiago Zambrano and son Freddie Zambrano and they are both aware and agreeable with the discharge plan. SW informed Freddie that a social work lecturer will inform the family once the patient is ready for discharge and confirm the DC plan.
--- NOTE | 2016-10-15 14:00 | NUR ---
GPS: Nursing Notes: Discharge Notes: Patient awake and responding to his name, disoriented, impaired judgment, following staff directions at this time, denies any SI/HI, denies any AH/VH, denies any pain or discomfort at this time, denies any SOB, discharge to Med. Surg. room # 230 with Dx: Acute renal failure, report given to Tal PRICE, continue with 1:1 sitter for safety, F/C patent, took all his belongings with him, yellow necklace taken home by his Delores and his son Freddie, Dr. Kirkland and Dr. Cast will continue with aftercare at the med. surg. unit, copy of chart and original 9500 and copy of 5250 given to Tal PRICE.
[2016-10-15] MEDS ORDERED: HALO2TAB PO (16:58)
[2016-10-15] MEDS ORDERED: SULF1TAB48 PO (16:58)
[2016-10-15] MEDS ORDERED: OLAN2.5T22 PO (16:58)
[2016-10-15] MEDS ORDERED: TEMA7.5C2 PO (16:58)
[2016-10-15] MEDS ORDERED: MIRT7.5T10 PO (16:58)
[2016-10-15] MEDS ORDERED: MAG360OR83 PO (16:58)
[2016-10-15] MEDS ORDERED: OLAN10VI IM (16:58)
[2016-10-15] MEDS ORDERED: HALO5VIA9 IM (16:58)
[2016-10-15] MEDS ORDERED: TAMS-3 PO (16:58)
[2016-10-15] MEDS ORDERED: [UNRECOGNIZED DRUG - CODE] IM (16:58)
[2016-10-15] MEDS ORDERED: LORA-258 PO (16:58)
== END 2016-10-15 14:00 | DRG 885 ==
LOC: GPS 23:43
PROVIDERS: ADMIT Psychiatry & Neurology Psychosomatic Medicine; ATTEND Internal Medicine
DX: F29 Unspecified psychosis not due to a substance or known physiological condition (principal); F02.81 Dementia in other diseases classified elsewhere, unspecified severity, with behavioral disturbance; N18.9 Chronic kidney disease, unspecified; I50.31 Acute diastolic (congestive) heart failure; I13.0 Hypertensive heart and chronic kidney disease with heart failure and stage 1 through stage 4 chronic kidney disease, or unspecified chronic kidney disease; D68.59 Other primary thrombophilia; N39.0 Urinary tract infection, site not specified; G20 Parkinson's disease; G30.9 Alzheimer's disease, unspecified; E03.9 Hypothyroidism, unspecified; E29.1 Testicular hypofunction; I25.10 Atherosclerotic heart disease of native coronary artery without angina pectoris; I48.91 Unspecified atrial fibrillation; M19.90 Unspecified osteoarthritis, unspecified site; R29.6 Repeated falls; M81.0 Age-related osteoporosis without current pathological fracture; Z87.891 Personal history of nicotine dependence; Z95.1 Presence of aortocoronary bypass graft; Z95.2 Presence of prosthetic heart valve; S42.001A Fracture of unspecified part of right clavicle, initial encounter for closed fracture; X58.XXXA Exposure to other specified factors, initial encounter; Y93.9 Activity, unspecified; Y92.009 Unspecified place in unspecified non-institutional (private) residence as the place of occurrence of the external cause; Y99.9 Unspecified external cause status; M51.36 Other intervertebral disc degeneration, lumbar region; N28.1 Cyst of kidney, acquired; Z95.0 Presence of cardiac pacemaker; N40.1 Benign prostatic hyperplasia with lower urinary tract symptoms
CPT/HCPCS: 36415; 83090; 83735; 83921; 84100; 85025; 87086; 97001; 97116; 97530; A4663; J2358; J3420

== ENCOUNTER 2016-10-15 14:15 | Inpatient (IN) | payer MEDICARE, BC ==
[~2016-10-15] VITALS: Ht 167.6 cm; Wt 70.3 kg
--- NOTE | 2016-10-15 14:05 | NUR ---
RECEIVED VIA JIM CHAIR [place] [facility] 85 Y/O [place] DX OF ARF. ROUTINE ADMISSION CARE RENDERED. AWAKE, ALERT, ORIENTED X1, COOPERATIVE AND VERBALLY RESPONSIVE. 1:1 SITTER AT ALL TIMES AT BEDSIDE, WITH [address] RICARDO NOTIFIED OF ADMISSION.
[~2016-10-15 14:15] MED LIST changes: -ALBU0.63 IH; -DIGO250T PO; -EZET10TA PO; -FURO20TA4 PO; -IPRA12.9 IH; -METO-302 PO; -MIRT15TA PO; -NAPR220C15 PO; -NIAC500T23 PO; -TEST200V3 IM
[2016-10-15 15:00] VITALS: BP 141/69
[2016-10-15] MEDS ORDERED: Medication Not On Formulary EA ([Acetaminophen] (Tylenol) 650 MG) PO PRN (16:00)
[2016-10-15] MEDS ORDERED: IPRATROPIUM BROMIDE 0.5 MG/2.5 ML NEBU NEB PRN (16:00)
[2016-10-15] MEDS ORDERED: [UNRECOGNIZED DRUG - OTHER] PO PRN (16:00)
[2016-10-15] MEDS ORDERED: MORPHINE SULFATE 2 MG/1 ML DISP.SYRIN IV PRN (16:00)
[2016-10-15] MEDS ORDERED: ANASTROZOLE 1 MG TABLET PO SCH (16:00)
[2016-10-15] MEDS ORDERED: ALBUTEROL SULFATE 2.5 MG/ 0.5 ML NEBU NEB PRN (16:00)
[2016-10-15] MEDS ORDERED: ACETAMINOPHEN 325 MG TABLET PO PRN (16:15)
[2016-10-15] MEDS ORDERED: OLAN2.5T22 PO (16:58)
[2016-10-15] MEDS ORDERED: TAMS-3 PO (16:58)
[2016-10-15] MEDS ORDERED: MIRT7.5T10 PO (16:58)
[2016-10-15] MEDS ORDERED: SULF1TAB48 PO (16:58)
[2016-10-15] MEDS ORDERED: HALO5VIA9 IM (16:58)
[2016-10-15] MEDS ORDERED: MAG360OR83 PO (16:58)
[2016-10-15] MEDS ORDERED: [UNRECOGNIZED DRUG - CODE] IM (16:58)
[2016-10-15] MEDS ORDERED: TEMA7.5C2 PO (16:58)
[2016-10-15] MEDS ORDERED: LORA-258 PO (16:58)
[2016-10-15] MEDS ORDERED: OLAN10VI IM (16:58)
[2016-10-15] MEDS ORDERED: HALO2TAB PO (16:58)
[2016-10-15] MEDS ORDERED: QUETIAPINE FUMARATE 25 MG TABLET PO SCH (17:00)
[2016-10-15] MEDS: DOCUSATE SODIUM 100 MG CAPSULE PO SCH (17:24)
[2016-10-15] MEDS ORDERED: MAG HYDROX/AL HYDROX/SIMETH 30 ML LIQUID UDC PO PRN (17:30)
[2016-10-15] MEDS ORDERED: HALOPERIDOL LACTATE 5 MG/1 ML VIAL IM PRN (17:30)
[2016-10-15] MEDS ORDERED: OLANZAPINE 10 MG VIAL IM PRN (17:30)
[2016-10-15] MEDS ORDERED: TEMAZEPAM 7.5 MG CAPSULE PO PRN (17:30)
[2016-10-15] MEDS: OLANZAPINE 2.5 MG TABLET PO SCH (17:52)
[2016-10-15] MEDS: POTASSIUM CHLORIDE 20 MEQ in IV NS 1000 ML 1,000 ML IV PRN (17:53)
--- NOTE | 2016-10-15 18:50 | NUR ---
ADMISSION ORDERS RECEIVED, SALINE LOCK STARTED ON LEFT FA #20 AND IVF STARTED ORDERED AT 70CC/HR. FC IN PLACE AND URINE SPEC COLLECTED VIA CATH FOR UA AND C/S, SENT TO LAB. NOTED SKIN BREAKDOWN, SEE PHOTOS. SCD'S PLACED ON BLE'S. 1:1 SITTER AT BEDSIDE. CALM AND COOPERATIVE WITH TAKING PO MEDS.
--- NOTE | 2016-10-15 19:00 | NUR ---
AWAKE,ALERTX1,COOPERATIVE,TOOK ALL PILLS.SITTER AT BEDSIDE.IN NO DIETREE,WATCHING TV.
[2016-10-15 19:56] LABS: *BILIRUBIN,URIN NEGATIVE (NEGATIVE); *BLOOD, URINE 3+ (NEGATIVE); *CLARITY,URINE SLIGHTLY CLOUDY (CLEAR); *COLOR,URINE YELLOW (YELLOW); *KETONES,URINE NEGATIVE (NEGATIVE); *PROTEIN,URINE 1+ (NEGATIVE); *UROBILINOGEN,URINE 0.2 E.U./dl (NORMAL); LEUKOCYTE ESTERASE ,URINE 2+ (NEGATIVE); NITRITE, URINE NEGATIVE (NEGATIVE); UGLUCOSE NEGATIVE (NEGATIVE)
[2016-10-15 20:02] LABS: BACTERIA,URINE FEW /HPF (NONE SEEN); RBC,URINE 50-80 /HPF (0-3); SQUAMOUS EPITHELIAL CELL,UR FEW /HPF (NONE SEEN)
[2016-10-15] MEDS: TAMSULOSIN HCL 0.4 MG CAP.SR.24H PO SCH (20:21)
[2016-10-15 20:23] VITALS: BP 90/55
[2016-10-15] MEDS ORDERED: HALOPERIDOL 2 MG TABLET PO SCH (21:00)
[2016-10-15] MEDS ORDERED: HALOPERIDOL 1 MG TABLET PO SCH (21:00)
[2016-10-15] MEDS ORDERED: MIRTAZAPINE 15 MG TABLET PO SCH (21:00)
[2016-10-15] MEDS: Z GUARD REMEDY PASTE 57 GM TUBE TOP SCH (21:04)
[2016-10-16 03:50] VITALS: BP 95/86
--- NOTE | 2016-10-16 05:38 | NUR ---
IV INFILTRATED,GAUGE 22 REINSERTED ON RIGHT HAND,SLEPT AT SHORT INTERVALS.COOPERATIVE.
[2016-10-16] MEDS: LEVOTHYROXINE SODIUM 75 MCG TABLET PO SCH (06:05)
[2016-10-16] MEDS: PANTOPRAZOLE SODIUM 40 MG TABLET.DR PO SCH (06:06)
[2016-10-16] MEDS: SENNOSIDES 1 TABLET PO PRN (07:08)
[2016-10-16 07:20] LABS: BASOPHILS # (AUTO) 0.1 K/uL (0.0-0.2); BASOPHILS % (AUTO) 0.7 % (0.0-2.0); EOSINOPHILS # (AUTO) 0.4 K/uL (0.0-0.7); EOSINOPHILS % (AUTO) 4.8 % (0.0-7.0); HEMATOCRIT 42.5 % (40.0-50.0); HEMOGLOBIN 14.2 g/dL (14.0-18.0); LYMPHOCYTES # (AUTO) 1.6 K/uL (0.8-4.8); LYMPHOCYTES % (AUTO) 18.9 % (20.5-51.5); MEAN CORPUSCULAR HGB CONC 33 g/dL (32.0-37.0); MEAN CORPUSCULAR VOLUME 89.8 fL (82.0-92.0); MONOCYTES # (AUTO) 0.6 K/uL (0.1-1.30); NEUTROPHILS # (AUTO) 5.8 K/uL (1.8-8.9); NEUTROPHILS % (AUTO) 68.6 % (38.5-71.5); PLATELET COUNT (AUTO) 283 K/uL (150-450); RED BLOOD CELL COUNT(AUTO) 4.73 MIL/uL (4.70-6.10); RED CELL DISTRIBUTION WIDTH 12.9 % (11.5-14.5); WHITE BLOOD COUNT (AUTO) 8.5 K/uL (4.0-11.2)
[2016-10-16 07:24] LABS: BILIRUBIN,TOTAL 0.5 mg/dL (0.2-1.0); CALCIUM 8.7 mg/dL (8.5-10.1); MAGNESIUM 2.2 mg/dL (1.8-2.4); PHOSPHOROUS 2.9 mg/dL (2.5-4.9); POTASSIUM 3.9 mmol/L (3.5-5.1); TOTAL PROTEIN, SERUM 5.8 g/dL (6.4-8.2)
[2016-10-16 07:25] LABS: CREATININE 2.7 mg/dL (0.6-1.3)
[2016-10-16] MEDS: LORAZEPAM 0.5 MG TABLET PO PRN ×2 (07:41→15:25)
[2016-10-16] MEDS: ASPIRIN 325 MG TABLET PO SCH ×2 (08:18→09:30)
[2016-10-16] MEDS: POTASSIUM CHLORIDE 20 MEQ in IV NS 1000 ML 1,000 ML IV PRN (08:18)
[2016-10-16] MEDS: DUTASTERIDE 0.5 MG CAPSULE PO SCH ×2 (08:18→09:28)
[2016-10-16] MEDS: CYANOCOBALAMIN 1000 MCG/ML VIAL IM SCH (08:23)
[2016-10-16] MEDS: DIGOXIN 125 MCG TABLET PO SCH ×2 (08:23→09:29)
[2016-10-16] MEDS: MULTIVITAMINS,THERAPEUTIC TABLET PO SCH ×2 (08:23→09:30)
[2016-10-16] MEDS: DOCUSATE SODIUM 100 MG CAPSULE PO SCH ×3 (08:23→16:14)
[2016-10-16] MEDS: OLANZAPINE 2.5 MG TABLET PO SCH ×3 (08:23→16:14)
[2016-10-16] MEDS: Z GUARD REMEDY PASTE 57 GM TUBE TOP SCH ×2 (08:24→20:16)
--- NOTE | 2016-10-16 08:45 | NUR ---
PT REFUSING MORNING MEDICATIONS, ZYPREXA IM GIVEN
[2016-10-16 08:55] VITALS: BP 105/57
[2016-10-16] MEDS ORDERED: Medication Not On Formulary EA (Multivitamin (Multi Vitamin Daily) 1 EACH) PO SCH (09:00)
--- NOTE | 2016-10-16 09:42 | NUR ---
TRIED AGAIN FOR MORNING MEDICATIONS, PT TAKING THEM NOW HOWEVER ZYPREXA PO HELD DUE TO IM GIVEN PRIOR.
[2016-10-16 12:01] VITALS: BP 102/59
--- NOTE | 2016-10-16 13:09 | NUR ---
PT COMPLAINING OF NEED TO URINATE, ARTIS INTACT BUT HAD LOTS OD SEDIMENT. TRIED TO IRRIGATE YET HAD RESISTANCE, ARTIS REMOVED AND NEW ONE INSERTED USING STERILE TECHNIQUE, DRAINING WELL AND PT VERBALIZED ABSENCE OF NEED
[2016-10-16 16:40] VITALS: BP 158/80
[2016-10-16] MEDS ORDERED: OLANZAPINE 10 MG VIAL IM ONE (17:00)
[2016-10-16] MEDS ORDERED: OLANZAPINE 10 MG VIAL IM PRN (19:41)
[2016-10-16 20:00] VITALS: BP 135/66
--- NOTE | 2016-10-16 20:00 | NUR ---
PATIENT SITTING UP IN CHAIR,CONFUSED, SLIGHTLY RESTLESS, CONTINUE CLOSELY MONITOR 1:1 SITTER AT BEDSIDE.
[2016-10-16] MEDS: TAMSULOSIN HCL 0.4 MG CAP.SR.24H PO SCH (20:16)
--- NOTE | 2016-10-16 23:00 | NUR ---
RESTORIL GIVEN FOR INSOMNIA AND ULTRAM GIVEN FOR PAIN, PATIENT TOOK MEDICATION WELL,REFUSED TO GO BACK TO BED,HAVING SOME HALLUCINATIONS,TALK TO SELF,ADEQUATE URINE OUT PUT.
[2016-10-16] MEDS: TRAMADOL HCL 50 MG TABLET PO PRN (23:02)
[2016-10-17] MEDS: POTASSIUM CHLORIDE 20 MEQ in IV NS 1000 ML 1,000 ML IV PRN ×2 (05:11→22:03)
[2016-10-17] MEDS: LORAZEPAM 0.5 MG TABLET PO PRN (05:30)
--- NOTE | 2016-10-17 05:30 | NUR ---
PATIENT SLEPT ONLY SHORT INTERVAL,AGITATED,REMOVED IV FLUID,RESTARTED IN RIGHT FOREARM,ATIVAN 0.5 MG PO GIVEN,WARM BATH GIVEN,CONTINUE CLOSELY MONITOR.
[2016-10-17 05:32] VITALS: BP 106/66
[2016-10-17] MEDS: PANTOPRAZOLE SODIUM 40 MG TABLET.DR PO SCH (06:37)
[2016-10-17] MEDS: LEVOTHYROXINE SODIUM 75 MCG TABLET PO SCH (06:37)
[2016-10-17] MEDS: MULTIVITAMINS,THERAPEUTIC TABLET PO SCH (08:09)
[2016-10-17] MEDS: ASPIRIN 325 MG TABLET PO SCH (08:09)
[2016-10-17] MEDS: CYANOCOBALAMIN 1000 MCG/ML VIAL IM SCH (08:10)
[2016-10-17] MEDS: DOCUSATE SODIUM 100 MG CAPSULE PO SCH ×2 (08:10→17:53)
[2016-10-17] MEDS: DUTASTERIDE 0.5 MG CAPSULE PO SCH (08:10)
[2016-10-17] MEDS: DIGOXIN 125 MCG TABLET PO SCH (08:12)
[2016-10-17] MEDS: Z GUARD REMEDY PASTE 57 GM TUBE TOP SCH ×2 (08:13→20:15)
[2016-10-17] MEDS: ENOXAPARIN SODIUM 30 MG/0.3 ML DISP.SYRIN SUBCUT SCH (08:16)
[2016-10-17 08:17] LABS: ALBUMIN 3.2 g/dL (3.4-5.0); BILIRUBIN,TOTAL 0.6 mg/dL (0.2-1.0); CALCIUM 8.8 mg/dL (8.5-10.1); MAGNESIUM 2.1 mg/dL (1.8-2.4); PHOSPHOROUS 3.3 mg/dL (2.5-4.9); POTASSIUM 4.2 mmol/L (3.5-5.1)
[2016-10-17 08:19] LABS: CREATININE 2.3 mg/dL (0.6-1.3)
[2016-10-17] MEDS ORDERED: ENOXAPARIN SODIUM 40 MG/0.4 ML DISP.SYRIN SQ SCH (09:00)
[2016-10-17] MEDS ORDERED: OLANZAPINE 2.5 MG TABLET PO SCH (09:00)
[2016-10-17 09:06] LABS: BASOPHILS % (AUTO) 0.2 % (0.0-2.0); EOSINOPHILS # (AUTO) 0.4 K/uL (0.0-0.7); EOSINOPHILS % (AUTO) 5.3 % (0.0-7.0); HEMATOCRIT 44.3 % (40.0-50.0); HEMOGLOBIN 14.7 g/dL (14.0-18.0); LYMPHOCYTES # (AUTO) 1.3 K/uL (0.8-4.8); MEAN CORPUSCULAR HEMOGLOBIN 29.8 uug (27.0-31.0); MEAN CORPUSCULAR HGB CONC 33 g/dL (32.0-37.0); MEAN CORPUSCULAR VOLUME 89.7 fL (82.0-92.0); MONOCYTES # (AUTO) 0.5 K/uL (0.1-1.30); MONOCYTES % (AUTO) 6.1 % (0.0-11.0); NEUTROPHILS # (AUTO) 5.9 K/uL (1.8-8.9); NEUTROPHILS % (AUTO) 72.4 % (38.5-71.5); PLATELET COUNT (AUTO) 276 K/uL (150-450); RED BLOOD CELL COUNT(AUTO) 4.95 MIL/uL (4.70-6.10); RED CELL DISTRIBUTION WIDTH 12.9 % (11.5-14.5); WHITE BLOOD COUNT (AUTO) 8.1 K/uL (4.0-11.2)
[2016-10-17 11:28] VITALS: BP 109/57
--- NOTE | 2016-10-17 14:26 | NUR ---
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 PT ON FIRST STEP MATTRESS WITH SITTER AT BEDSIDE. ALL SKIN PROTECTION RECOMMENDATIONS DISCUSSED WITH NURSING STAFF. WILL SEE PRN. DUMONT IN AGREEMENT WITH PLAN OF CARE. Addendum: 10/17/16 at 1428 by TOPHER MARTIN RN Amended: Links added.
[2016-10-17 16:54] VITALS: BP 103/65
[2016-10-17] MEDS: OLANZAPINE 5 MG TABLET PO SCH (17:53)
[2016-10-17] MEDS: SENNOSIDES 1 TABLET PO PRN (17:53)
--- NOTE | 2016-10-17 19:15 | NUR ---
END OF SHIFT NOTE: PATIENT IN NO ACUTE DISTRESS THROUGHOUT SHIFT. DENIED PAIN. VSS. NO BEHAVIORS OBSERVED AT THIS TIME. AMBULATED TO BATHROOM WITH ASSIST WITH NO BM. ARTIS CATH IN PLACE WITH URINE YELLOW AND CLEAR. FALL PRECAUTIONS IN PLACE. CONTINUES WITH 1:1 SITTER AT BEDSIDE FOR SAFETY.
[2016-10-17 20:00] VITALS: BP 108/66
[2016-10-17] MEDS: TAMSULOSIN HCL 0.4 MG CAP.SR.24H PO SCH (20:15)
--- NOTE | 2016-10-17 21:00 | NUR ---
PATIENT AWAKE,MORE ALERT,VERBALLY RESPONSIVE,COMPLIANT WITH CARE AND MEDICATIONS,FOLLOW SIMPLE INSTRUCTIONS,NO AGITATION NOTED, ON 14 DAYS HOLD, 1:1 SITTER AT BEDSIDE,SAFETY PRECAUTIONS MAINTAINED.ARTIS CATH INTACT,ADEQUATE URINE OUT PUT.
[2016-10-17] MEDS: TEMAZEPAM 7.5 MG CAPSULE PO PRN (21:56)
[2016-10-17] MEDS: TRAMADOL HCL 50 MG TABLET PO PRN (21:57)
--- NOTE | 2016-10-17 22:00 | NUR ---
RESTORIL 7.5 MG PO GIVEN FOR INSOMNIA.
--- NOTE | 2016-10-17 23:05 | NUR ---
PATIENT ASLEEP,APPEARS COMFORTABLE.
[2016-10-18] MEDS: TEMAZEPAM 7.5 MG CAPSULE PO PRN ×2 (00:29→23:59)
--- NOTE | 2016-10-18 00:30 | NUR ---
PATIENT WOKE UP RESTLESS,PULLED OFF F/C,RESTORIL 7.5 MG PO GIVEN REPEATED DOSE REINSERT ARTIS CATH,STERILE TECHNIQUE OBSERVED.
[2016-10-18 04:00] VITALS: BP 107/54
--- NOTE | 2016-10-18 06:38 | NUR ---
PATIENT SLEPT WELL AFTER 2 ND DOSE OF RESTORIL GIVEN,ABOUT 7 HOURS UNTIL NOW,NO ACUTE DISTRESS, URINE OUT PUT CLEAR YELLOWISH.CONTINUE 1:1 SITTER AT BEDSIDE, PATIENT REFUSED LAB BLOOD DRAWN THIS AM.WILL TRY AGAIN LATER.
[2016-10-18] MEDS: PANTOPRAZOLE SODIUM 40 MG TABLET.DR PO SCH (07:19)
[2016-10-18] MEDS: LEVOTHYROXINE SODIUM 75 MCG TABLET PO SCH (07:19)
[2016-10-18] MEDS: ASPIRIN 325 MG TABLET PO SCH (08:40)
[2016-10-18] MEDS: DOCUSATE SODIUM 100 MG CAPSULE PO SCH ×2 (08:40→17:31)
[2016-10-18] MEDS: DIGOXIN 125 MCG TABLET PO SCH (08:41)
[2016-10-18] MEDS: DUTASTERIDE 0.5 MG CAPSULE PO SCH (08:41)
[2016-10-18] MEDS: OLANZAPINE 2.5 MG TABLET PO SCH (08:42)
[2016-10-18] MEDS: CYANOCOBALAMIN 1000 MCG/ML VIAL IM SCH (08:42)
[2016-10-18] MEDS: MULTIVITAMINS,THERAPEUTIC TABLET PO SCH (08:42)
[2016-10-18] MEDS: ENOXAPARIN SODIUM 30 MG/0.3 ML DISP.SYRIN SUBCUT SCH (08:43)
[2016-10-18] MEDS: Z GUARD REMEDY PASTE 57 GM TUBE TOP SCH ×2 (08:44→21:48)
[2016-10-18 10:43] LABS: PHOSPHOROUS 3.2 mg/dL (2.5-4.9)
[2016-10-18 10:50] LABS: BASOPHILS % (AUTO) 0.6 % (0.0-2.0); EOSINOPHILS # (AUTO) 0.6 K/uL (0.0-0.7); EOSINOPHILS % (AUTO) 6.9 % (0.0-7.0); HEMATOCRIT 46.8 % (40.0-50.0); HEMOGLOBIN 15.9 g/dL (14.0-18.0); LYMPHOCYTES # (AUTO) 1.5 K/uL (0.8-4.8); LYMPHOCYTES % (AUTO) 18.6 % (20.5-51.5); MEAN CORPUSCULAR HEMOGLOBIN 30.5 uug (27.0-31.0); MEAN CORPUSCULAR HGB CONC 34 g/dL (32.0-37.0); MEAN CORPUSCULAR VOLUME 89.7 fL (82.0-92.0); MONOCYTES # (AUTO) 0.5 K/uL (0.1-1.30); MONOCYTES % (AUTO) 6.7 % (0.0-11.0); NEUTROPHILS # (AUTO) 5.6 K/uL (1.8-8.9); NEUTROPHILS % (AUTO) 67.2 % (38.5-71.5); RED BLOOD CELL COUNT(AUTO) 5.22 MIL/uL (4.70-6.10); RED CELL DISTRIBUTION WIDTH 13.1 % (11.5-14.5); WHITE BLOOD COUNT (AUTO) 8.2 K/uL (4.0-11.2)
[2016-10-18 10:52] LABS: CALCIUM 9.1 mg/dL (8.5-10.1); POTASSIUM 4.6 mmol/L (3.5-5.1)
[2016-10-18 10:54] LABS: CREATININE 2.2 mg/dL (0.6-1.3)
[2016-10-18 10:57] VITALS: BP 102/58
[2016-10-18 11:07] LABS: PLATELET COUNT (AUTO) 201 K/uL (150-450)
[2016-10-18 15:34] VITALS: BP 113/64
[2016-10-18] MEDS: LORAZEPAM 0.5 MG TABLET PO PRN ×2 (15:48→21:47)
[2016-10-18] MEDS: OLANZAPINE 5 MG TABLET PO SCH (17:31)
--- NOTE | 2016-10-18 19:34 | NUR ---
END OF SHIFT NOTE: PATIENT IN NO ACUTE DISTRESS THROUGHOUT SHIFT. VSS. DENIED PAIN. PATIENT AMBULATED WITH PT AND WITH STAFF. UP ON CHAIR VIDHYA. PATIENT WITH GOOD APPETITE. NEEDS MET BY STAFF. CONTINUES ON 1:1 SITTER AT BEDSIDE FOR SAFETY.
[2016-10-18 20:00] VITALS: BP 118/59
[2016-10-18] MEDS: TAMSULOSIN HCL 0.4 MG CAP.SR.24H PO SCH (21:47)
[2016-10-19 05:33] VITALS: BP 110/56
[2016-10-19] MEDS: PANTOPRAZOLE SODIUM 40 MG TABLET.DR PO SCH (06:26)
[2016-10-19] MEDS: LEVOTHYROXINE SODIUM 75 MCG TABLET PO SCH (06:26)
[2016-10-19 06:42] LABS: BASOPHILS # (AUTO) 0.1 K/uL (0.0-0.2); BASOPHILS % (AUTO) 0.7 % (0.0-2.0); EOSINOPHILS # (AUTO) 0.6 K/uL (0.0-0.7); EOSINOPHILS % (AUTO) 6.5 % (0.0-7.0); HEMATOCRIT 45.2 % (40.0-50.0); HEMOGLOBIN 15.2 g/dL (14.0-18.0); LYMPHOCYTES # (AUTO) 1.4 K/uL (0.8-4.8); LYMPHOCYTES % (AUTO) 15.8 % (20.5-51.5); MEAN CORPUSCULAR HGB CONC 34 g/dL (32.0-37.0); MEAN CORPUSCULAR VOLUME 89.3 fL (82.0-92.0); MONOCYTES # (AUTO) 0.5 K/uL (0.1-1.30); MONOCYTES % (AUTO) 5.9 % (0.0-11.0); NEUTROPHILS # (AUTO) 6.1 K/uL (1.8-8.9); NEUTROPHILS % (AUTO) 71.1 % (38.5-71.5); PLATELET COUNT (AUTO) 301 K/uL (150-450); RED BLOOD CELL COUNT(AUTO) 5.06 MIL/uL (4.70-6.10); WHITE BLOOD COUNT (AUTO) 8.7 K/uL (4.0-11.2)
[2016-10-19 06:58] LABS: ALBUMIN 3.4 g/dL (3.4-5.0); BILIRUBIN,TOTAL 0.8 mg/dL (0.2-1.0); CALCIUM 9.9 mg/dL (8.5-10.1); POTASSIUM 4.3 mmol/L (3.5-5.1); TOTAL PROTEIN, SERUM 6.5 g/dL (6.4-8.2)
[2016-10-19 07:02] LABS: CREATININE 2.2 mg/dL (0.6-1.3)
[2016-10-19] MEDS: ASPIRIN 325 MG TABLET PO SCH (08:20)
[2016-10-19] MEDS: CYANOCOBALAMIN 1000 MCG/ML VIAL IM SCH (08:20)
[2016-10-19] MEDS: OLANZAPINE 2.5 MG TABLET PO SCH (08:21)
[2016-10-19] MEDS: DUTASTERIDE 0.5 MG CAPSULE PO SCH (08:21)
[2016-10-19] MEDS: DOCUSATE SODIUM 100 MG CAPSULE PO SCH (08:21)
[2016-10-19] MEDS: MULTIVITAMINS,THERAPEUTIC TABLET PO SCH (08:21)
[2016-10-19] MEDS: DIGOXIN 125 MCG TABLET PO SCH (08:22)
[2016-10-19] MEDS: ENOXAPARIN SODIUM 30 MG/0.3 ML DISP.SYRIN SUBCUT SCH (08:22)
[2016-10-19] MEDS: Z GUARD REMEDY PASTE 57 GM TUBE TOP SCH (08:23)
--- NOTE | 2016-10-19 10:00 | NUR ---
Discharge: Patient's refused admission to [facility] and requested that the patient return back home [[address] [place] [address] ]. [facility] will follow [[phone]]. Patient will be transported via ambulance. has arranged for caregivers to receive the patient once he arrives.
--- NOTE | 2016-10-19 10:46 | NUR ---
CLINICAL PHARMACY NOTE(REVIEW OF CSC) Patient is 85-year-old white male who was brought to the emergency department of [facility] by his and artistic director for the evaluation of worsening generalized weakness and a fall at home. Patient supposedly injured her right hip area and has been complaining of pain. There were no reports of seizure-like activity, no injury to the head. Patient did not report any chest pain or palpitations. Family has not noticed any fever or chills. Usually patient walks with a walker, but sometimes is noncompliance. In the last few weeks prior to presentation to the emergency department patient was noted to be more agitated and confused. He does have underlying history of dementia. Assessment PER ADMITTING MD 1. Generalized weakness and sluggishness. 2. Acute renal failure on CKD. 3. Mild hypernatremia due to dehydration. 4. Atrial fibrillation with history of PPM placement. 5. Mild cardiomegaly - mild chronic diastolic HF. 6. Status post Digoxin toxicity - therapeutic level at the present. 7. History of CAD and three-vessel CABG. 8. History of bioprosthetic mitral valve replacement. 9. Incomplete hairline fracture of distal right clavicle. 10. Hypertension and hypothyroidism. 11. 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 12. OA, osteoporosis and severe DDD of L-spine. 13. Poor mobility and hypercoagulable state. 14. Unsteady gait with history of falls. 15. 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 16. Parkinson's disease - likely Parkinson's dementia. 17. Bilateral simple renal cysts on imaging studies. Patient has past medical history of A. fib All medications review as of today high risk medication are, digoxin,tramadol,lorazepam,temazepam,morphine,olanzapine, and pantoprazole. Asprin Digoxin use in atrial fibrillation: should not be used as a first-line agent in atrial fibrillation, because more effective alternatives exist and it may be associated with increased mortality. Use in heart failure: questionable effects on risk of hospitalization and may be associated with increased mortality in older adults with heart failure; in heart failure, higher dosages not associated with additional benefit and may increase risk of toxicity. Tramadol lowers seizure threshold; may be acceptable in individuals with well-controlled seizures in whom alternative agents have not been effective Lorazepam, and temazepam older adults have increased sensitivity to benzodiazepines and decreased metabolism of long-acting agents. In general, all benzodiazepines increase risk of cognitive impairment, delirium, falls, fractures. Morphine may cause ataxia, impaired psychomotor function, syncope, additional falls also constipation. Olanzapine increased risk of cerebrovascular accident (stroke) and greater rate of cognitive decline and mortality in persons with dementia. Avoid antipsychotics for behavioral problems of dementia or delirium unless pharmalogical options (e.g., behavioral interventions) have failed or are not possible and the older adult is threatening substantial harm to self or others. Pantoprazole use should not exceed 8 weeks unless for high-risk patients (e.g. oral corticosteroids or chronic NSAID use), erosive esophagitis, Jean Baptiste's esophagitis,, pathological hypersecretory condition, or demonstrated need for maintenance treatment (e.g., due to failure of drug discontinuation trial or H2 blockers) Risk of C. Diff and bone fractures. Aspirin increases risk of GI bleeding/peptic ulcer disease in high groups, including those greather than or equa This patient was transfered from our geropsych unit and is under the care of a psychiatrist Recommendations: Patient discontinue morphine has not used in 4 day and has an order for tramadol. Monitor digoxin level patients renal function declining. Limit use of pantoprazole in patient only for GI prophylaxis if no other indication.
[2016-10-19 11:27] VITALS: BP 101/56
--- NOTE | 2016-10-19 15:15 | NUR ---
PATIENT DISCHARGE HOME IN SAFE AND STABLE CONDITION. NO S/S OF DISTRESS NOTED DURING THE DAY. PATRICE CASTRO SITTER FOR SAFETY. PATIENT SLEPT DURING MY SHIFT. WOUND TREATMENT DONE. PICTURES WERE TAKEN IN PLACED ON CHART. DC INSTRUCTIONS WERE SIGNED BY ALBERT MCPHERSON AND I DUE TO PATIENT UNABLE TO SIGN. PATRICE TALKED TO SON AND HE IS AWARE PATIENT IS GOING HOME BY AMBULANCE. F/C AND IV REMOVED. SAFETY AND COMFORT PROVIDED DURING MY SHIFT. PARAMEDICS TOOK PATIENT IN STABLE CONDITION.
[2016-10-26] MEDS ORDERED: CYANOCOBALAMIN 1000 MCG/ML VIAL IM SCH ×2 (09:00)
[2016-12-10] MEDS ORDERED: CYANOCOBALAMIN 1000 MCG/ML VIAL IM SCH (09:00)
== END 2016-10-19 15:15 | disposition home health service (06) | DRG 682 ==
LOC: MED 14:15
PROVIDERS: ADMIT Internal Medicine; ATTEND Internal Medicine
DX: N17.9 Acute kidney failure, unspecified (principal); G93.40 Encephalopathy, unspecified; I13.0 Hypertensive heart and chronic kidney disease with heart failure and stage 1 through stage 4 chronic kidney disease, or unspecified chronic kidney disease; I50.32 Chronic diastolic (congestive) heart failure; D68.59 Other primary thrombophilia; F02.81 Dementia in other diseases classified elsewhere, unspecified severity, with behavioral disturbance; E86.0 Dehydration; N18.9 Chronic kidney disease, unspecified; Z95.1 Presence of aortocoronary bypass graft; E03.9 Hypothyroidism, unspecified; F29 Unspecified psychosis not due to a substance or known physiological condition; G20 Parkinson's disease; G30.9 Alzheimer's disease, unspecified; I25.10 Atherosclerotic heart disease of native coronary artery without angina pectoris; Z95.2 Presence of prosthetic heart valve; Z91.81 History of falling; Z87.891 Personal history of nicotine dependence; N40.0 Benign prostatic hyperplasia without lower urinary tract symptoms; M81.0 Age-related osteoporosis without current pathological fracture; I48.91 Unspecified atrial fibrillation; Z95.0 Presence of cardiac pacemaker; M51.36 Other intervertebral disc degeneration, lumbar region; N28.1 Cyst of kidney, acquired; E29.1 Testicular hypofunction; S42.001A Fracture of unspecified part of right clavicle, initial encounter for closed fracture; X58.XXXA Exposure to other specified factors, initial encounter; Y93.9 Activity, unspecified; Y92.009 Unspecified place in unspecified non-institutional (private) residence as the place of occurrence of the external cause; R29.6 Repeated falls; Z91.19 Patient's noncompliance with other medical treatment and regimen
CPT/HCPCS: 36415; 83735; 84100; 85025; 87086; 97001; 97003; 97116; 97530; A4217; A4663; J1650; J2358; J3420; J3480; J3590; J7030